=== PATIENT | female | born 1945 | race Caucasian/White ===

== ENCOUNTER 2017-06-24 14:24 | Inpatient (IN) | payer MEDICARE, MEDICAID ==
[~2017-06-24] VITALS: Ht 149.9 cm; Wt 55.8 kg
[~2017-06-24 14:24] MED LIST: AC325T PO; ACYC800T57 PO; AGM875T PO; ASCO-262 PO; ASCO500T20 PO; ASP81TEC PO; CEFU500T5 PO; CEPH500C PO; CRAN200C PO; DCS100C PO; FERR-57 PO; GNT.3OP5 OP; HYDR-34 PO; HYDR-3583 PO; HYDR1TAB66 PO; IBP200T PO; LORA10CA PO; LORA10TA2 PO; LSNP10T PO; MELO7.5T PO; MTF500T PO; NEOM10DR6 LEFT EAR; NFGUAR168P PO; NITR-65 PO; PEG250PW PO; POLY17PO23 GT; SENN1TAB76 PO; SULF-109 PO; TR1C15 TOP; [UNRECOGNIZED DRUG - OTHER] LEFT EAR
[2017-06-24] MEDS ORDERED: NS IV 1000 ML 1,000 ML IV ONE (15:16)
--- NOTE | 2017-06-24 15:22 | ED General ---
General Chief Complaint: Glucose Problems Stated Complaint: CLAMMY RAPID PULSE NOT EATING ELEV BLOOD SUGAR Nursing Triage Note: PT WAS BROUGHT TO ROOM BY WHEELCHAIR. WAS INFORMED THAT PT HAD ELEVATED BLOOD SUGAR SINCE YESTERDAY. HADN'T BEEN EATING OR DRINKING SINCE YESTERDAY WELL. Nursing Sepsis Screen: No Definite Risk Source of Information: Patient Exam Limitations: No Limitations History of Present Illness Time Seen by Provider: 15:05 Initial Comments Here with report by care worker that the patient hasn't been eating or drinking well since yesterday. Noted to have elevated blood sugar yesterday. Refused her night meds and her morning meds and she is not eating today. She has MR and is in a usp. Usually eats well and takes her medicines well. Vomited shortly after arrival here. No report of fever. No reported diarrhea. Timing/Duration: 1-2 Days Severity: Moderate Associated Systoms: No Cough, No Fever/Chills, Nausea/Vomiting, No Shortness of Air, Weakness Allergies and Home Medications Allergies Coded Allergies: ciprofloxacin (Verified Allergy, Intermediate, Lip swelling, 03/06/13) ciprofloxacin HCl (Verified Allergy, Intermediate, Lip swelling, 03/06/13) sulfamethoxazole (Verified Allergy, Intermediate, Lip swelling, 03/06/13) trimethoprim (Verified Allergy, Intermediate, Lip swelling, 03/06/13) Home Medications Acetaminophen 325 Mg Tablet, 650 MG PO EVERY 4-6 HOURS PRN, (Reported) PRN PAIN OR ELEVATED TEMP Ascorbic Acid 500 Mg Tablet, 500 MG PO DAILY, (Reported) Cranberry Extract 200 Mg Capsule, Unknown Dose PO UD, (Reported) Ferrous Sulfate 325 Mg Tablet, 325 MG PO DAILY, (Reported) Lisinopril 10 Mg Tab, 10 MG PO DAILY, (Reported) Loratadine 10 Mg Tablet, 10 MG PO DAILY, (Reported) Metformin Hcl 500 Mg Tab, 500 MG PO BIDPC, (Reported) Nitrofurantoin/Nitrofuran Mac 100 Mg Capsule, 1 EACH PO BID, #20 FOR INFECTION Prescribed by: CECE GUTIERREZ on 08/01/14 7496 Polyethylene Glycol 1 Ea Pack, 17 GM PO DAILY PRN, (Reported) PRN CONSTIPATION Triamcinolone Acet 15 Gm Cr, 0 TOP BID, (Reported) APPLY SPRARINGLY TO FACE AND CHEEK THREE TIMES DAILY Constitutional: see HPI, No chills, No fever Respiratory: no symptoms reported Other unable to complete review of systems due to patient's underlying mental status and advanced MR and nonverbal. Past Zqizgle-Odriee-Vlfpae Hx Patient Social History Alcohol Use: Denies Use Recreational Drug Use: No Smoking Status: Never a Smoker 2nd Hand Smoke Exposure: No Recent Foreign Travel: No Contact w/Someone Who Travel: No Recent Infectious Disease Expo: No Recent Hopitalizations: No Immunizations Up To Date Tetanus Booster (TDap): More than 5yrs Date of Pneumonia Vaccine: Aug 18, 2010 Date of Influenza Vaccine: Aug 28, 2013 Seasonal Allergies Seasonal Allergies: Yes Surgeries HX Surgeries: Yes (LEFT HIP FX ORIF) Surgeries: Hysterectomy, Orthopedic Respiratory Hx Respiratory Disorders: No Cardiovascular Hx Cardiac Disorders: Yes (CHF) Cardiac Disorders: Hypertension Neurological Hx Neurological Disorders: Yes (SEVERE MR, NON-VERBAL) Neurological Disorders: Developmental Disorder Reproductive System Hx Reproductive Disorders: Yes (HYSTERECTOMY) 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 Genitourinary Hx Genitourinary Disorders: Yes Genitourinary Disorders: UTI-Chronic Gastrointestinal Hx Gastrointestinal Disorders: Yes Gastrointestinal Disorders: Chronic Constipation Musculoskeletal Hx Musculoskeletal Disorders: Yes (FX LEFT HIP, CONTRACTURE LEFT HAND) Musculoskeletal Disorders: Arthritis, Fractures, Contracture Endocrine Hx Endocrine Disorders: Yes Endocrine Disorders: Diabetes, Non-Insulin dep HEENT HX ENT Disorders: Yes (ALL TEETH REMOVED) Cancer Hx Cancer: No Psychosocial Hx Psychiatric Problems: Yes (SEVERE MR) Integumentary HX Skin/Integumentary Disorder: No Skin/Integumentary Disorders: Recent Skin Changes Blood Transfusions Hx Blood Disorders: No Adverse Reaction to a Blood Tr: No Reviewed Nursing Assessment Reviewed/Agree w Nursing PMH: Yes Family Medical History Significant Family History: No Pertinent Family Hx Physical Exam Vital Signs Vital Sign - Last 12Hours 06/24/17 15:08 Temp 98.1 Pulse 91 Resp 20 B/P (MAP) 118/46 Pulse Ox 100 O2 Delivery Room Air Capillary Refill : Less Than 3 Seconds General Appearance: No Apparent Distress, WD/WN HEENT: PERRL/EOMI, Pharynx Normal Neck: Non Tender, Supple Respiratory: Lungs Clear, Normal Breath Sounds Cardiovascular: Regular Rate, Rhythm, No Murmur Gastrointestinal: Non Tender, Soft, Other (vomitus noted on her shirt) Back: Normal Inspection, No CVA Tenderness, No Vertebral Tenderness Extremity: Normal Range of Motion, Non Tender Neurologic/Psychiatric: Alert, Disoriented x3 Skin: Normal Color, Warm/Dry Focused Exam Lactic Acid Level Laboratory Tests Test 06/24/17 15:57 Lactic Acid Level 1.36 MMOL/L (0.50-2.00) Progress/Results/Core Measures Results/Orders Lab Results Laboratory Tests Test 06/24/17 15:03 06/24/17 15:45 06/24/17 15:57 Range/Units Glucometer 89 70-110 MG/DL Urine Color YELLOW Urine Clarity SLIGHTLY CLOUDY Urine pH 5 5-9 Urine Specific [place] 1.020 1.016-1.022 Urine Protein NEGATIVE NEGATIVE Urine Glucose (UA) NEGATIVE NEGATIVE Urine Ketones NEGATIVE NEGATIVE Urine Nitrite POSITIVE H NEGATIVE Urine Bilirubin NEGATIVE NEGATIVE Urine Urobilinogen 1 NORMAL MG/DL Urine Leukocyte Esterase 1+ H NEGATIVE Urine RBC (Auto) 1+ H NEGATIVE Urine RBC 0-2 /HPF Urine WBC 5-10 H /HPF Urine Crystals NONE /LPF Urine Bacteria LARGE H /HPF Urine Casts NONE /LPF Urine Mucus NEGATIVE /LPF Urine Culture Indicated YES White Blood Count 6.2 4.3-11.0 10^3/uL Red Blood Count 3.31 L 4.35-5.85 10^6/uL Hemoglobin 10.7 L 11.5-16.0 G/DL Hematocrit 32 L 35-52 % Mean Corpuscular Volume 96 80-99 FL Mean Corpuscular Hemoglobin 32 25-34 PG Mean Corpuscular Hemoglobin Concent 34 32-36 G/DL Red Cell Distribution Width 14.9 H 10.0-14.5 % Platelet Count 103 L 130-400 10^3/uL Mean Platelet Volume 10.4 7.4-10.4 FL Neutrophils (%) (Auto) 57 42-75 % Lymphocytes (%) (Auto) 30 12-44 % Monocytes (%) (Auto) 12 0-12 % Eosinophils (%) (Auto) 1 0-10 % Basophils (%) (Auto) 1 0-10 % Neutrophils # (Auto) 3.6 1.8-7.8 X 10^3 Lymphocytes # (Auto) 1.9 1.0-4.0 X 10^3 Monocytes # (Auto) 0.7 0.0-1.0 X 10^3 Eosinophils # (Auto) 0.1 0.0-0.3 10^3/uL Basophils # (Auto) 0.0 0.0-0.1 10^3/uL Sodium Level 147 H 135-145 MMOL/L Potassium Level 5.5 H 3.6-5.0 MMOL/L Chloride Level 118 H 98-107 MMOL/L Carbon Dioxide Level 19 L 21-32 MMOL/L Anion Gap 10 5-14 MMOL/L Blood Urea Nitrogen 43 H 7-18 MG/DL Creatinine 1.09 0.60-1.30 MG/DL Estimat Glomerular Filtration Rate 49 BUN/Creatinine Ratio 39 Glucose Level 89 70-105 MG/DL Lactic Acid Level 1.36 0.50-2.00 MMOL/L Calcium Level 9.1 8.5-10.1 MG/DL Magnesium Level 1.9 1.8-2.4 MG/DL Total Bilirubin 0.5 0.1-1.0 MG/DL Aspartate Amino Transf (AST/SGOT) 39 H 5-34 U/L Alanine Aminotransferase (ALT/SGPT) 30 0-55 U/L Alkaline Phosphatase 103 40-136 U/L Troponin I < 0.30 <0.30 NG/ML C-Reactive Protein High Sensitivity 0.35 0.00-0.50 MG/DL Total Protein 6.4 6.4-8.2 GM/DL Albumin 3.5 3.2-4.5 GM/DL Amylase Level 98 25-125 U/L Lipase 273 H 8-78 U/L My Orders Orders - FABIOLA NJ MD Saline Lock/Iv-Start (06/24/17 15:16) Ns Iv 1000 Ml (Sodium Chloride 0.9%) (06/24/17 15:16) Ekg Tracing (06/24/17 15:16) Monitor-Rhythm Ecg Trace Only (06/24/17 15:16) Amylase (06/24/17 15:16) Cbc With Automated Diff (06/24/17 15:16) Comprehensive Metabolic Panel (06/24/17 15:16) Hs C Reactive Protein (06/24/17 15:16) Lactic Acid Analyzer (06/24/17 15:16) Lipase (06/24/17 15:16) Magnesium (06/24/17 15:16) Troponin I (06/24/17 15:16) Ua Culture If Indicated (06/24/17 15:16) Blood Culture (06/24/17 15:16) Chest 1 View, Ap/Pa Only (06/24/17 15:26) Urine Culture (06/24/17 15:45) Medications Given in ED Current Medications Medications Dose Ordered Sig/[place] Route Start Time Stop Time Status Last Admin Dose Admin Sodium Chloride 1,000 ml @ 0 mls/hr Q0M ONCE IV 06/24/17 15:16 06/24/17 15:20 DC 06/24/17 15:35 1,000 MLS/HR Vital Signs/I&O Vital Sign - Last 12Hours 06/24/17 15:08 Temp 98.1 Pulse 91 Resp 20 B/P (MAP) 118/46 Pulse Ox 100 O2 Delivery Room Air Blood Pressure Mean: 70 Progress Note : Progress Note Seen and evaluated. IV, labs, EKG, normal saline 1 L bolus. Blood sugar ordered. Monitor patient. 1642: Discussed case with Dr. Shah. Patient has urinary tract infection in the setting of persistent vomiting and not wanting to take by mouth foods or fluids. Also noted dehydration. She will need treatment for her urinary tract infection which will require IV antibiotics. Dr. Shah agrees and accepts patient for admission, inpatient status. Care worker informed and agrees. Rocephin 1 g IV ordered. History shows patient to have previous multiple organisms but both were sensitive to ceftriaxone. ECG Initial ECG Impression Date: Jun 24, 2017 Initial ECG Impression Time: 15:12 Initial ECG Rate: 88 Initial ECG Rhythm: Normal Sinus Comment Sinus rhythm with LVH. No evidence of ST elevation HI. No previous available for comparison. Interpreted by me. Diagnostic Imaging Diagonstic Imaging: Xray Plain Films/CT/US/NM/MRI: chest Comments VIA [place], [place] NAME: CLAUDETTE BRIONES [facility] REC#: [id number] PT STATUS: REG ER : 1945 PHYSICIAN: FABIOLA NJ MD ADMIT DATE: 06/24/17/ER Draft Date of Exam:06/24/17 CHEST 1 VIEW, AP/PA ONLY INDICATION: Elevated blood sugar. EXAMINATION: Portable erect AP chest at 4:20 p.m. FINDINGS: As on the prior exam of 01/01/16, there is shallow inspiration. Allowing for this technical factor, the heart size is within normal limits and stable when compared to the prior exam. There are chronic pulmonary changes evident but there is no sign of failure, pneumonia or of a pleural effusion to suggest an acute abnormality. The mediastinum is not widened. There is irregularity of the right sixth rib. Most likely this is a sequela of prior trauma. There is no acute bony abnormality identified. IMPRESSION: 1. There is chronic pulmonary disease but there is no acute cardiopulmonary abnormality identified on this suboptimal exam. 2. If clinical concern regarding an underlying abnormality persists, then followup PA and lateral chest would be recommended for further study. Dictated on workstation # [id number] Dict: 06/24/17 1631 Trans: 06/24/17 1636 [facility] [id number] Interpreted by: DAVID LINDA MD Electronically signed by: Departure Communication Time/Spoke to Admitting Phy: 16:42 Impression Impression: Primary Impression: Urinary tract infectious disease Additional Impression: Dehydration Disposition: ADMITTED INPATIENT Condition: Stable Admissions Decision to Admit Reason: Admit from ER (General) Decision to Admit/Date: Jun 24, 2017 Time/Decision to Admit Time: 16:42 Departure-Patient Inst. Referrals: BELA AGUIRRE MD (PCP/Family) Primary Care Physician FABIOLA NJ MD Jun 24, 2017 15:22
[2017-06-24 15:51] LABS: BILIRUBIN,URINE NEGATIVE (NEGATIVE); KETONES,URINE NEGATIVE (NEGATIVE); LEUKOCYTE ESTERASE ,URINE 1+ (NEGATIVE); NITRITE,URINE POSITIVE (NEGATIVE); PH,URINE 5 (5-9); PROTEIN,URINE NEGATIVE (NEGATIVE); UROBILINOGEN,URINE 1 MG/DL (NORMAL)
[2017-06-24 16:10] LABS: BASOPHILS % (AUTO) 1 % (0-10); EOSINOPHILS # (AUTO) 0.1 10^3/uL (0.0-0.3); EOSINOPHILS % (AUTO) 1 % (0-10); LYMPHOCYTES # (AUTO) 1.9 X 10^3 (1.0-4.0); LYMPHOCYTES % (AUTO) 30 % (12-44); MEAN CORPUSCULAR HEMOGLOBIN 32 PG (25-34); MEAN CORPUSCULAR HGB CONC 34 G/DL (32-36); MEAN CORPUSCULAR VOLUME 96 FL (80-99); MEAN PLATELET VOLUME 10.4 FL (7.4-10.4); MONOCYTES # (AUTO) 0.7 X 10^3 (0.0-1.0); MONOCYTES % (AUTO) 12 % (0-12); NEUTROPHILS # (AUTO) 3.6 X 10^3 (1.8-7.8); NEUTROPHILS % (AUTO) 57 % (42-75); PLATELET COUNT 103 10^3/uL (130-400); RED BLOOD COUNT 3.31 10^6/uL (4.35-5.85); RED CELL DISTRIBUTION WIDTH 14.9 % (10.0-14.5); WHITE BLOOD COUNT 6.2 10^3/uL (4.3-11.0)
[2017-06-24 16:29] LABS: ALANINE AMINOTRANSFERASE 30 U/L (0-55); ALBUMIN 3.5 GM/DL (3.2-4.5); AMYLASE 98 U/L (25-125); ANION GAP 10 MMOL/L (5-14); ASPARTATE AMINO TRANSFERASE 39 U/L (5-34); BILIRUBIN,TOTAL 0.5 MG/DL (0.1-1.0); BLOOD UREA NITROGEN 43 MG/DL (7-18); BUN/CREATININE RATIO 39; CALCIUM 9.1 MG/DL (8.5-10.1); CARBON DIOXIDE 19 MMOL/L (21-32); CHLORIDE 118 MMOL/L (98-107); CREATININE SERUM 1.09 MG/DL (0.60-1.30); GFR ESTIMATED 49; GLUCOSE 89 MG/DL (70-105); LIPASE 273 U/L (8-78); MAGNESIUM 1.9 MG/DL (1.8-2.4); POTASSIUM 5.5 MMOL/L (3.6-5.0); SODIUM 147 MMOL/L (135-145); TOTAL PROTEIN 6.4 GM/DL (6.4-8.2); hs C REACTIVE PROTEIN 0.35 MG/DL (0.00-0.50)
[2017-06-24 16:34] LABS: TROPONIN I < 0.30 NG/ML (<0.30)
--- NOTE | 2017-06-24 16:36 | Diagnostic Imaging Report ---
INDICATION: Elevated blood sugar. EXAMINATION: Portable erect AP chest at 4:20 p.m. FINDINGS: As on the prior exam of 01/01/16, there is shallow inspiration. Allowing for this technical factor, the heart size is within normal limits and stable when compared to the prior exam. There are chronic pulmonary changes evident but there is no sign of failure, pneumonia or of a pleural effusion to suggest an acute abnormality. The mediastinum is not widened. There is irregularity of the right sixth rib. Most likely this is a sequela of prior trauma. There is no acute bony abnormality identified. IMPRESSION: 1. There is chronic pulmonary disease but there is no acute cardiopulmonary abnormality identified on this suboptimal exam. 2. If clinical concern regarding an underlying abnormality persists, then followup PA and lateral chest would be recommended for further study. Dictated by: Dictated on workstation # [id number]
[2017-06-24 17:30] VITALS: BP 133/64
[2017-06-24] MEDS ORDERED: cefTRIAXone INJECTION 1,000 MG in NS (IVPB) 50 ML IV SCH (18:00)
[2017-06-24] MEDS ORDERED: ONDANSETRON 4 MG/2 ML (SDV) Z0FRAN IVP PRN (18:00)
[2017-06-24] MEDS ORDERED: NS (IVPB) 50 ML ONE (18:18)
[2017-06-24] MEDS ORDERED: cefTRIAXone 1 GM (ROCEPHIN) VIAL ONE (18:18)
[2017-06-24] MEDS: NS IV 1000 ML 1,000 ML IV SCH (18:27)
[2017-06-24] MEDS ORDERED: LOPE-145 PO (19:15)
[2017-06-24] MEDS ORDERED: IBUP200C11 PO (19:15)
[2017-06-24] MEDS ORDERED: DIPH25CA79 PO (19:15)
[2017-06-24] MEDS ORDERED: EUCA1LOZ28 MM (19:15)
[2017-06-24] MEDS ORDERED: MONT10TA24 PO (19:15)
[2017-06-24] MEDS ORDERED: GUAI237L82 PO (19:15)
[2017-06-24] MEDS ORDERED: CALC-870 PO (19:15)
[2017-06-24] MEDS ORDERED: CARB15DR87 OT (19:15)
[2017-06-24] MEDS ORDERED: ALBU2.5V4 NEB (19:15)
[2017-06-24] MEDS ORDERED: GLIM2TAB PO (19:15)
[2017-06-24] MEDS ORDERED: BENZ100C23 PO (19:15)
[2017-06-24] MEDS ORDERED: LORA10TA7 PO (19:15)
[2017-06-24] MEDS ORDERED: NEOM28.33 TP (19:15)
[2017-06-24] MEDS ORDERED: MAGN400O7 PO (19:15)
[2017-06-24] MEDS ORDERED: TETR15DR74 OU (19:15)
[2017-06-24] MEDS ORDERED: DIPH25TA65 PO (19:15)
[2017-06-24] MEDS ORDERED: HYDR28OI2 TP (19:15)
[2017-06-24 20:00] VITALS: BP 155/77
[2017-06-25] VITALS: BP 135/84
[2017-06-25 04:00] VITALS: BP 110/64
[2017-06-25] MEDS: NS IV 1000 ML 1,000 ML IV SCH ×2 (04:50→15:04)
[2017-06-25 06:30] LABS: BASOPHILS % (AUTO) 0 % (0-10); EOSINOPHILS % (AUTO) 1 % (0-10); LYMPHOCYTES % (AUTO) 22 % (12-44); MEAN CORPUSCULAR HEMOGLOBIN 32 PG (25-34); MEAN CORPUSCULAR HGB CONC 33 G/DL (32-36); MEAN CORPUSCULAR VOLUME 96 FL (80-99); MEAN PLATELET VOLUME 10.8 FL (7.4-10.4); MONOCYTES # (AUTO) 0.5 X 10^3 (0.0-1.0); MONOCYTES % (AUTO) 11 % (0-12); NEUTROPHILS % (AUTO) 66 % (42-75); PLATELET COUNT 76 10^3/uL (130-400); RED BLOOD COUNT 3.16 10^6/uL (4.35-5.85); RED CELL DISTRIBUTION WIDTH 14.8 % (10.0-14.5); WHITE BLOOD COUNT 4.6 10^3/uL (4.3-11.0)
[2017-06-25 06:55] LABS: ALANINE AMINOTRANSFERASE 32 U/L (0-55); ALBUMIN 3.2 GM/DL (3.2-4.5); ANION GAP 9 MMOL/L (5-14); ASPARTATE AMINO TRANSFERASE 47 U/L (5-34); BILIRUBIN,TOTAL 0.4 MG/DL (0.1-1.0); BLOOD UREA NITROGEN 38 MG/DL (7-18); BUN/CREATININE RATIO 46; CALCIUM 8.6 MG/DL (8.5-10.1); CARBON DIOXIDE 16 MMOL/L (21-32); CHLORIDE 119 MMOL/L (98-107); CREATININE SERUM 0.83 MG/DL (0.60-1.30); GFR ESTIMATED > 60; GLUCOSE 70 MG/DL (70-105); POTASSIUM 5.2 MMOL/L (3.6-5.0); SODIUM 144 MMOL/L (135-145); TOTAL PROTEIN 6.1 GM/DL (6.4-8.2)
[2017-06-25 08:19] VITALS: BP 115/68
[2017-06-25 11:20] VITALS: BP 120/64
[2017-06-25] MEDS ORDERED: BENZONATATE 100 MG (TESSALON) CAPSULE PO PRN (11:30)
[2017-06-25] MEDS ORDERED: CALCIUM CARBONATE 500 MG (TUMS) TAB.CHEW PO PRN (11:30)
[2017-06-25] MEDS ORDERED: TETRAHYDROZOLINE (VISINE) 0.05% 15 ML BTL OP PRN (11:30)
[2017-06-25] MEDS ORDERED: HYDROCORTISONE ACETATE TP PRN (11:30)
[2017-06-25] MEDS ORDERED: RT-ALBUTEROL SULF 2.5 MG/3 ML PRE-MIX VIAL IH PRN (11:30)
[2017-06-25] MEDS ORDERED: MENTHOL MM PRN (11:30)
[2017-06-25] MEDS ORDERED: IBUPROFEN TABLET 200 MG TAB PO PRN (11:30)
[2017-06-25] MEDS ORDERED: diphenhydrAMINE 25 MG TAB (BENADRYL) PO PRN ×2 (11:30)
[2017-06-25] MEDS ORDERED: MILK OF MAGNESIA 400 MG/5 ML 30 ML UDC PO PRN (11:30)
[2017-06-25] MEDS ORDERED: CARBAM PEROX/GLYC/PROP 15 ML DROPS (DEBROX) OT PRN (11:30)
[2017-06-25] MEDS ORDERED: NEO/POLY/BAC (NEOSPORIN) OINT 15 GM TUBE TP PRN (11:30)
[2017-06-25] MEDS ORDERED: ACETAMINOPHEN 325 MG TABLET/CAPLET (TYLENOL) PO PRN (11:30)
[2017-06-25] MEDS ORDERED: LOPERAMIDE 2 MG (IMODIUM) CAP PO PRN (11:30)
[2017-06-25] MEDS ORDERED: guaiFENesin/DM (ROBITUSSIN DM) 10 ML UDC PO PRN (11:30)
[2017-06-25] MEDS ORDERED: TRIAMCINOLONE 0.1% CR (KENALOG) 15 GM TUBE TOP PRN (11:30)
[2017-06-25] MEDS ORDERED: EUCALYPTUS MM PRN (11:30)
--- NOTE | 2017-06-25 11:56 | History & Physical-Hospitalist ---
HPI History of Present Illness: HPI/Chief Complaint CC: Vomiting and dehydration with UTI HPI: This is a 72yoWF clinic patient of Dr Villegas that has severe MR and lives in a mcc with assist who presents to the ER w/fever and vomiting. Her labs were noted to be c/w dehydration and since she was unable to tolerate PO abx she was admitted for IVF and monitored closely. Pt is non-verbal and has a sitter currently that has no concerns. UCx preliminary reviewed. Home meds are reconciled. Source: RN/MD Exam Limitations: clinical condition (MR with dementia) Date Seen 06/25/17 Time Seen by Provider: 11:00 Attending Physician Nayely Shah Rachel L MD Referring Physician Date of Admission Jun 24, 2017 at 16:50 Home Medications & Allergies Home Medications Reviewed patient Home Medication Reconciliation Form Allergies Allergies Coded Allergies ciprofloxacin (Verified Allergy, Intermediate, Lip swelling, 06/24/17) sulfamethoxazole (Verified Allergy, Intermediate, Lip swelling, 06/24/17) trimethoprim (Verified Allergy, Intermediate, Lip swelling, 06/24/17) metformin (Verified Adverse Reaction, Unknown, 06/24/17) DECREASED KIDNEY FUNCTION PER [place] STAFF Past Jgklrpu-Nsbnlo-Lunvrb Hx Patient Social History Marrital Status: single Employed/Student: unemployed Alcohol Use: Denies Use Recreational Drug Use: No Smoking Status: Never a Smoker 2nd Hand Smoke Exposure: No Physical Abuse Screen: No Sexual Abuse: No Recent Foreign Travel: No Contact w/other who traveled: No Recent Hopitalizations: No Recent Infectious Disease Expo: No Immunizations Up To Date Tetanus Booster (TDap): More than 5yrs Date of Pneumonia Vaccine: Aug 18, 2010 Date of Influenza Vaccine: Aug 28, 2013 Seasonal Allergies Seasonal Allergies: Yes Surgeries HX Surgeries: Yes (LEFT HIP FX ORIF) Surgeries: Hysterectomy, Orthopedic Respiratory Hx Respiratory Disorders: No Cardiovascular Hx Cardiovascular Disorders: Yes (CHF) Cardiac Disorders: Hypertension Neurological Hx Neurological Disorders: Yes (SEVERE MR, NON-VERBAL) Neurological Disorders: Developmental Disorder Reproductive System Hx Reproductive Disorders: Yes (HYSTERECTOMY) 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 Genitourinary Hx Genitourinary Disorders: Yes Genitourinary Disorders: UTI-Chronic Gastrointestinal Hx Gastrointestinal Disorders: Yes Gastrointestinal Disorders: Gastroesophageal Reflux, Chronic Constipation Musculoskeletal Hx Musculoskeletal Disorders: Yes (FX LEFT HIP, CONTRACTURE LEFT HAND) Musculoskeletal Disorders: Arthritis, Fractures, Contracture Endocrine Hx Endocrine Disorders: Yes Endocrine Disorders: Diabetes, Non-Insulin dep HEENT HX ENT Disorders: Yes (ALL TEETH REMOVED) Cancer Hx Cancer: No Psychosocial Hx Psychiatric Problems: Yes (SEVERE MR) Integumentary HX Skin/Integumentary Disorder: No Skin/Integumentary Disorders: Recent Skin Changes Blood Transfusions Hx Blood Disorders: No Adverse Reaction to a Blood Tr: No Reviewed Nursing Assessment Reviewed/Agree w Nursing PMH: Yes Family Medical History Significant Family History: No Pertinent Family Hx Family Hx: Patient reports no known family medical history. Review of Systems ROS-Unable to Obtain: Unable to ascertain due to MR Constitutional: see HPI Physical Exam Physical Exam Vital Signs Vital Sign - Last 12Hours 06/24/17 15:08 Temp 98.1 Pulse 91 Resp 20 B/P (MAP) 118/46 Pulse Ox 100 O2 Delivery Room Air Capillary Refill : Less Than 3 Seconds General Appearance: No Apparent Distress, WD/WN, Chronically ill Eyes: Bilateral Eye Normal Inspection, Bilateral Eye PERRL HEENT: PERRL/EOMI, Normal ENT Inspection, Pharynx Normal Neck: Full Range of Motion, Normal Inspection, Non Tender, Supple, Carotid Bruit Respiratory: Chest Non Tender, Lungs Clear, Normal Breath Sounds, No Accessory Muscle Use, No Respiratory Distress Cardiovascular: Regular Rate, Rhythm, No Edema, No Gallop, No JVD, No Murmur, Normal Peripheral Pulses Gastrointestinal: Normal Bowel Sounds, No Organomegaly, No Pulsatile Mass, Non Tender, Soft Back: Normal Inspection, No CVA Tenderness, No Vertebral Tenderness Extremity: Normal Capillary Refill, Normal Inspection, Normal Range of Motion, Non Tender, No Calf Tenderness, No Pedal Edema Neurologic/Psychiatric: Alert, Other (MR) Skin: Normal Color, Warm/Dry Lymphatic: No Adenopathy Results Results/Procedures Lab Laboratory Tests 06/24/17 15:57 06/25/17 06:05 Assessment/Plan Admission Diagnosis Assessment: Acute UTI w/h/o UTI's in the past Dehydration on labs and exam MR severe Asthma HTN DM MR Dementia Assessment and Plan Plan: DVT Px w/SCD and Lovenox Reconciled most of her home meds but will hold OHA and SSI until she is eating and drinking normally Check labs in am Clinical Quality Measures DVT/VTE Risk/Contraindication: Risk Factor Score Per Nursin RFS Level Per Nursing on Admit: 4+=Very High NAYELY SHAH DO Jun 25, 2017 11:56
[2017-06-25] MEDS: inSUlin ASPART (NovoLOG) 1 UNIT/0.01 ML (CHARGE PER UNIT) SC SCH ×3 (11:57→21:07)
[2017-06-25] MEDS ORDERED: ENOXAPARIN 40 MG/0.4 ML (LOVENOX) SYR SC SCH (12:00)
[2017-06-25] MEDS: lisINopril 10 MG (PRINIVIL) TAB PO SCH (12:11)
[2017-06-25] MEDS: POLYETHYLENE GLYCOL 17 GM (MIRALAX) PACK PO SCH (12:11)
[2017-06-25] MEDS: FERROUS SULF 325 MG (IRON) TAB PO SCH (12:11)
[2017-06-25] MEDS: ASCORBIC ACID (VIT C) 500 MG TABLET PO SCH (12:11)
[2017-06-25 16:00] VITALS: BP 106/42
[2017-06-25] MEDS ORDERED: cefTRIAXone INJECTION 1,000 MG in NS (IVPB) 50 ML IV SCH (18:00)
[2017-06-25 19:13] VITALS: BP 121/71
[2017-06-25] MEDS ORDERED: MONTELUKAST 10 MG (SINGULAIR) TAB PO SCH (21:00)
[2017-06-25] MEDS ORDERED: LORATADINE (CLARITIN) 10 MG TAB PO SCH (21:00)
[2017-06-26 00:09] VITALS: BP 115/59
[2017-06-26] MEDS: NS IV 1000 ML 1,000 ML IV SCH (01:04)
[2017-06-26 04:00] VITALS: BP 154/73
[2017-06-26] MEDS: inSUlin ASPART (NovoLOG) 1 UNIT/0.01 ML (CHARGE PER UNIT) SC SCH (06:02)
[2017-06-26 06:57] LABS: BASOPHILS % (AUTO) 0 % (0-10); EOSINOPHILS % (AUTO) 1 % (0-10); LYMPHOCYTES # (AUTO) 0.9 X 10^3 (1.0-4.0); LYMPHOCYTES % (AUTO) 17 % (12-44); MEAN CORPUSCULAR HEMOGLOBIN 32 PG (25-34); MEAN CORPUSCULAR HGB CONC 34 G/DL (32-36); MEAN CORPUSCULAR VOLUME 96 FL (80-99); MEAN PLATELET VOLUME 11.1 FL (7.4-10.4); MONOCYTES # (AUTO) 0.6 X 10^3 (0.0-1.0); MONOCYTES % (AUTO) 11 % (0-12); NEUTROPHILS # (AUTO) 3.8 X 10^3 (1.8-7.8); NEUTROPHILS % (AUTO) 72 % (42-75); PLATELET COUNT 82 10^3/uL (130-400); RED BLOOD COUNT 3.01 10^6/uL (4.35-5.85); RED CELL DISTRIBUTION WIDTH 14.6 % (10.0-14.5); WHITE BLOOD COUNT 5.3 10^3/uL (4.3-11.0)
[2017-06-26 07:15] LABS: ALANINE AMINOTRANSFERASE 30 U/L (0-55); ALBUMIN 3.2 GM/DL (3.2-4.5); ANION GAP 9 MMOL/L (5-14); ASPARTATE AMINO TRANSFERASE 43 U/L (5-34); BILIRUBIN,TOTAL 0.6 MG/DL (0.1-1.0); BLOOD UREA NITROGEN 34 MG/DL (7-18); BUN/CREATININE RATIO 42; CALCIUM 8.6 MG/DL (8.5-10.1); CARBON DIOXIDE 16 MMOL/L (21-32); CHLORIDE 119 MMOL/L (98-107); CREATININE SERUM 0.81 MG/DL (0.60-1.30); GFR ESTIMATED > 60; GLUCOSE 99 MG/DL (70-105); POTASSIUM 4.3 MMOL/L (3.6-5.0); SODIUM 144 MMOL/L (135-145)
[2017-06-26 08:00] VITALS: BP 130/67
[2017-06-26] MEDS: lisINopril 10 MG (PRINIVIL) TAB PO SCH (08:36)
[2017-06-26] MEDS: FERROUS SULF 325 MG (IRON) TAB PO SCH (08:36)
[2017-06-26] MEDS: POLYETHYLENE GLYCOL 17 GM (MIRALAX) PACK PO SCH (08:36)
[2017-06-26] MEDS: ASCORBIC ACID (VIT C) 500 MG TABLET PO SCH (08:36)
[2017-06-26] MEDS ORDERED: CEFD300C3 PO (09:39)
--- NOTE | 2017-06-26 09:40 | Discharge Summary-Hospitalist ---
Diagnosis/Chief Complaint Date of Admission Jun 24, 2017 at 16:50 Date of Discharge Discharge Date: Jun 26, 2017 Admission Diagnosis Assessment: Acute UTI w/h/o UTI's in the past Dehydration on labs and exam MR severe Asthma HTN DM MR Dementia Discharge Diagnosis Assessment: Acute UTI w/h/o UTI's in the past Dehydration on labs and exam MR severe Asthma HTN DM MR Dementia Discharge Summary Discharge Physical Examination Allergies: Coded Allergies: ciprofloxacin (Verified Allergy, Intermediate, Lip swelling, 06/24/17) sulfamethoxazole (Verified Allergy, Intermediate, Lip swelling, 06/24/17) trimethoprim (Verified Allergy, Intermediate, Lip swelling, 06/24/17) metformin (Verified Adverse Reaction, Unknown, 06/24/17) DECREASED KIDNEY FUNCTION PER [place] STAFF Vitals & I&Os Vital Signs Date Time Temp Pulse Resp B/P (MAP) Pulse Ox O2 Delivery O2 Flow Rate FiO2 06/26/17 09:00 Room Air 06/26/17 08:00 98.5 58 16 130/67 98 Hospital Course Hospital course: patient had a brief hospital course. She was admitted for UTI with vomiting and such severe MR she required IVF to maintain status. Rocephin was initiated and UCx resulted in good coverage. She was eating and drinking well and overall was stable for DC and close f/u with Dr Garcia. Labs (last 24 hrs) Laboratory Tests 06/25/17 11:55: Glucometer 164H 06/25/17 15:40: Glucometer 288H 06/25/17 21:03: Glucometer 66L 06/26/17 05:38: Glucometer 93 06/26/17 06:41: White Blood Count 5.3, Red Blood Count 3.01L, Hemoglobin 9.7L, Hematocrit 29L, Mean Corpuscular Volume 96, Mean Corpuscular Hemoglobin 32, Mean Corpuscular Hemoglobin Concent 34, Red Cell Distribution Width 14.6H, Platelet Count 82L, Mean Platelet Volume 11.1H, Neutrophils (%) (Auto) 72, Lymphocytes (%) (Auto) 17 , Monocytes (%) (Auto) 11, Eosinophils (%) (Auto) 1, Basophils (%) (Auto) 0, Neutrophils # (Auto) 3.8, Lymphocytes # (Auto) 0.9L, Monocytes # (Auto) 0.6, Eosinophils # (Auto) 0.0, Basophils # (Auto) 0.0, Sodium Level 144, Potassium Level 4.3, Chloride Level 119H, Carbon Dioxide Level 16L, Anion Gap 9, Blood Urea Nitrogen 34H, Creatinine 0.81, Estimat Glomerular Filtration Rate > 60, BUN /Creatinine Ratio 42, Glucose Level 99, Calcium Level 8.6, Total Bilirubin 0.6, Aspartate Amino Transf (AST/SGOT) 43H, Alanine Aminotransferase (ALT/SGPT) 30, Alkaline Phosphatase 102, Total Protein 6.0L, Albumin 3.2 Microbiology 06/24/17 Blood Culture - Preliminary, Resulted No growth 06/24/17 Urine Culture - Final, Complete Escherichia Coli Enterococcus Faecalis Pending Labs Laboratory Tests 06/26/17 05:38: Glucometer 93 06/26/17 06:41: White Blood Count 5.3, Red Blood Count 3.01, Hemoglobin 9.7, Hematocrit 29, Mean Corpuscular Volume 96, Mean Corpuscular Hemoglobin 32, Mean Corpuscular Hemoglobin Concent 34, Red Cell Distribution Width 14.6, Platelet Count 82, Mean Platelet Volume 11.1, Neutrophils (%) (Auto) 72, Lymphocytes (%) (Auto) 17 , Monocytes (%) (Auto) 11, Eosinophils (%) (Auto) 1, Basophils (%) (Auto) 0, Neutrophils # (Auto) 3.8, Lymphocytes # (Auto) 0.9, Monocytes # (Auto) 0.6, Eosinophils # (Auto) 0.0, Basophils # (Auto) 0.0, Sodium Level 144, Potassium Level 4.3, Chloride Level 119, Carbon Dioxide Level 16, Anion Gap 9, Blood Urea Nitrogen 34, Creatinine 0.81, Estimat Glomerular Filtration Rate > 60, BUN/ Creatinine Ratio 42, Glucose Level 99, Calcium Level 8.6, Total Bilirubin 0.6, Aspartate Amino Transf (AST/SGOT) 43, Alanine Aminotransferase (ALT/SGPT) 30, Alkaline Phosphatase 102, Total Protein 6.0, Albumin 3.2 Discharge Home Medications: Active Scripts Active Cefdinir 300 Mg Capsule 300 Mg PO BID Reported Imodium A-D (Loperamide HCl) 2 Mg Capsule PO UD PRN TAKE 2 TABS AFTER 1ST WATERY STOOL AND 1 TAB AFTER EACH WATERY STOOL THEREAFTER (NTE 4 DOSES IN 24 HOURS) Robitussin Cough-Chest Dm Liq (Guaifenesin/Dextromethorphan) 237 Ml Liquid 10 Ml PO Q4H PRN NOT TO EXCEED 6 DOSES IN 24 HOURS Milk of Magnesia (Magnesium Hydroxide) 400 Mg/5 Ml Oral.susp 30 Ml PO BID PRN Advil (Ibuprofen) 200 Mg Capsule 400 Mg PO Q6H PRN TAKES 2 (200MG) CAPSULES Benadryl Allergy (Diphenhydramine HCl) 25 Mg Tablet 50 Mg PO Q6H PRN TAKES 2 (25MG) TABLETS Benadryl (Diphenhydramine HCl) 25 Mg Capsule 25 Mg PO Q6H PRN Cough Drops (Eucalyptus/Menthol) 1 Each Lozenge 1 Masha MM Q1HR PRN MAX 8 DROPS IN 24 HOURS Tums X-Str (Calcium Carbonate) 300 Mg Tab.chew 500 Mg PO UD PRN NOT TO EXCEED 10 TABS IN 24 HOURS Benzonatate 100 Mg Capsule 100 Mg PO Q8H PRN Neosporin Ointment (Neomycin Flood/Bacitrac Zn/Poly) 28.3 Gm Oint...g. TP BID PRN Visine (Tetrahydrozoline HCl) 15 Ml Drops 2 Drops OU QID PRN Hydrocortisone (Hydrocortisone Acetate) 28 Gm Oint...g. TP TID PRN APPLY TO ACUTE SKIN RASH - DO NOT APPLY TO OPEN SKIN Debrox (Carbamide Peroxide) 15 Ml Drops 10 Drops OT UD PRN 10 DROPS TO BOTH EARS 10 DAYS PRIOR TO NEXT VISIT Albuterol Sulfate 2.5 Mg/3 Ml Vial.neb 2.5 Mg NEB EVERY 4-6 HOURS PRN Montelukast Sodium 10 Mg Tablet 10 Mg PO HS Loratadine 10 Mg Tablet 10 Mg PO HS Glimepiride 2 Mg Tablet 2 Mg PO DAILY Vitamin C 500 Mg (Ascorbic Acid) 500 Mg Tablet 500 Mg PO DAILY Miralax Pkt (Polyethylene Glycol) 1 Ea Pack 17 Gm PO DAILY Triamcinolone 0.1% Cream (Triamcinolone Acetonide) 15 Gm Cr TOP TID PRN APPLY TO NECK Tylenol (Acetaminophen) 325 Mg Tablet 650 Mg PO EVERY 4-6 HOURS PRN TAKES 2 (325MG) TABLETS Ferrous Sulfate 325 Mg Tablet 325 Mg PO DAILY Zestril (Lisinopril) 10 Mg Tab 10 Mg PO DAILY Instructions to patient/family Please see electonic discharge instructions given to patient. Clinical Quality Measures DVT/VTE Risk/Contraindication: Risk Factor Score Per Nursin RFS Level Per Nursing on Admit: 4+=Very High LADY RANDOLPH DO Jun 26, 2017 09:40
[2017-06-26 12:08] VITALS: BP 130/67
== END 2017-06-26 12:08 | disposition home or self-care (01) | DRG 690 ==
LOC: EDUNIT# 14:24 → ER 14:26 → 4TH 16:50
PROVIDERS: ADMIT Internal Medicine; ATTEND Internal Medicine
DX: N39.0 Urinary tract infection, site not specified (principal); E86.0 Dehydration; F72 Severe intellectual disabilities; J45.909 Unspecified asthma, uncomplicated; I10 Essential (primary) hypertension; E11.9 Type 2 diabetes mellitus without complications; Z79.84 Long term (current) use of oral hypoglycemic drugs; F03.90 Unspecified dementia, unspecified severity, without behavioral disturbance, psychotic disturbance, mood disturbance, and anxiety
CPT/HCPCS: 36415; 71010; 80053; 81000; 82150; 82962; 83605; 83690; 83735; 84484; 85025; 86141; 87040; 87077; 87088; 87186; 93005; 93041

== ENCOUNTER → 2017-07-14 | Outpatient (CLI) | payer MEDICARE, MEDICAID ==
[~2017-07-14] MED LIST changes: +ALBU2.5V4 NEB; +BENZ100C23 PO; +CALC-870 PO; +CARB15DR87 OT; +CEFD300C3 PO; +DIPH25CA79 PO; +DIPH25TA65 PO; +EUCA1LOZ28 MM; +GLIM2TAB PO; +GUAI237L82 PO; +HYDR28OI2 TP; +IBUP200C11 PO; +LOPE-145 PO; +LORA10TA7 PO; +MAGN400O7 PO; +MONT10TA24 PO; +NEOM28.33 TP; +TETR15DR74 OU
== END ==
LOC: CARD 09:04
PROVIDERS: ATTEND Family Medicine
DX: R60.0 Localized edema (principal); I50.9 Heart failure, unspecified
CPT/HCPCS: 93306

== ENCOUNTER 2017-08-22 09:00 | Outpatient (CLI) | payer MEDICARE, MEDICAID ==
[~2017-08-22] VITALS: Ht 149.9 cm; Wt 54.9 kg
[2017-08-22] MEDS ORDERED: TR1C15 TP (13:30)
[2017-08-22] MEDS ORDERED: POLY17PO23 PO (13:30)
[2017-08-22] MEDS ORDERED: LORA0.5T PO (13:30)
[2017-08-22] MEDS ORDERED: CNC1KV IJ (13:30)
[2017-08-22] MEDS ORDERED: FERR-74 PO (13:30)
[2017-08-22] MEDS ORDERED: LISI10TA2 PO (13:30)
[2017-08-22] MEDS ORDERED: ASCO500T7 PO (13:30)
[2017-08-22] MEDS ORDERED: ACET325T49 PO (13:30)
[2017-08-23] MEDS ORDERED: PANT40TA2 PO (13:24)
== END 2017-08-22 13:32 ==
LOC: PREOP 09:00
PROVIDERS: ATTEND Surgery
DX: Z01.818 Encounter for other preprocedural examination (principal); D64.9 Anemia, unspecified

== ENCOUNTER 2017-08-23 10:52 | Day surgery (SDC) | payer MEDICARE, MEDICAID ==
[~2017-08-23] VITALS: Ht 149.9 cm; Wt 54.9 kg
[~2017-08-23 10:52] MED LIST changes: +ACET325T49 PO; +ASCO500T7 PO; +CNC1KV IJ; +FERR-74 PO; +LISI10TA2 PO; +LORA0.5T PO; +POLY17PO23 PO; +TR1C15 TP
--- NOTE | 2017-08-23 10:57 | Conscious Sedation/ASA ---
Conscious Sedation Pre-Proced Time Reviewed: 10:50 ASA Class: 2 Airway Mallampati Classification: ([place] appropriate class) I. II. III, IV Lungs Heart ASA score ASA 1: a normal healthy patient ASA 2: a patient with a mild systemic disease (mid diabetes, controlled hypertension, obesity ASA 3: a patient with a severe systemic disease that limits activity (angina , COPD, prior Myocardial infarction) ASA 4: a patient with an incapacitating disease that is a constant threat to life (CHF, renal failure) ASA 5: a moribund patient not expected to survive 24 hrs. (ruptured aneurysm) ASA 6: a declared brain patient whose organs are being harvested. For emergent operations, add the letter E after the classification Grade 2 Sedation Plan: Analgesia, Amnesia, Plan communicated to team members, Discussed options with patient/fam, Discussed risks with patient/fam Note The patient is an appropriate candidate to undergo the planned procedure, sedation, and anesthesia. The patient immediately re-assessed prior to indication. KLEBER GIVENS MD Aug 23, 2017 10:57 am
--- NOTE | 2017-08-23 10:58 | Progress Note-Pre Operative ---
Pre-Operative Progress Note H&P Reviewed The H&P was reviewed, patient examined and no changes noted. Date Seen by Provider: Aug 23, 2017 Time Seen by Provider: 10:50 Date H&P Reviewed: Aug 23, 2017 Time H&P Reviewed: 10:50 Pre-Operative Diagnosis: anemia KLEBER GIVENS MD Aug 23, 2017 10:58 am
[2017-08-23] MEDS ORDERED: ONDANSETRON 4 MG/2 ML (SDV) Z0FRAN IV PRN (11:00)
[2017-08-23] MEDS ORDERED: ACETAMINOPHEN 325 MG TABLET/CAPLET (TYLENOL) PO PRN (11:00)
[2017-08-23] MEDS ORDERED: HYDROcodone/APAP 5 MG/325 MG (LORTAB) TAB PO PRN (11:00)
[2017-08-23] MEDS ORDERED: morphine INJ 10 MG/ML 1ML (SYR OR VIAL) IV PRN (11:00)
[2017-08-23] MEDS ORDERED: HURRICAINE EXT TUBE (BENZOCAINE) XX PRN (11:15)
[2017-08-23] MEDS ORDERED: NS IV 500 ML 500 ML IV PRN (11:15)
[2017-08-23] MEDS ORDERED: LIDOCAINE JELLY 2% (XYLOCAINE) 5 ML TUBE MM PRN (11:15)
[2017-08-23 11:27] VITALS: BP 75/49
[2017-08-23] MEDS: fentaNYL INJECTION 100 MCG/2 ML AMP IVP PRN ×4 (12:00→12:20)
[2017-08-23] MEDS: MIDAZOLAM 2 MG/2 ML (VERSED) VIAL IVP PRN ×2 (12:01→12:50)
[2017-08-23 13:15] VITALS: BP 90/51
--- NOTE | 2017-08-23 13:23 | Progress Note-Post Operative ---
Post-Operative Progess Note Surgeon (s)/Patient Case Coordinator (s) Surgeon KLEBER GIVENS MD Patient Case Coordinator: none Pre-Operative Diagnosis anemia Post-Operative Diagnosis reflux esophagtis(class B), mild grade 1 esophageal varices, small HH(1.5cm), small prepyloric ulcers x2(2mm) with overlying fibrin clot. HP polyp rectum(2mm). Procedure & Operative Findings Date of Procedure 08/23/17 Procedure Performed/Findings EGD with bx. Colonoscopy with bx. Anesthesia Type CS Estimated Blood Loss Estimated blood loss (mL): minimal Specimens/Packing Specimens Removed antrum, ulcer KLEBER GIVENS MD Aug 23, 2017 1:22 pm
[2017-08-23] MEDS ORDERED: PANT40TA2 PO (13:24)
--- NOTE | 2017-08-23 13:25 | Discharge Inst-Surgical ---
D/C Lap Instructions-KIDO New, Converted, or Re-Newed RX: RX on Chart Follow PRN Activity as tolerated High Fiber Diet 25g or more per day Avoid Alcohol, Caffeine, Spicy [place] and Acid foods. Drink 64 fluid oz or more of fluids per day. Symptoms to Report: Fever over 101 degree F, Nausea/Vomiting If any problems/questions: Contact your physician or go to Emergency Room KLEBER GIVENS MD Aug 23, 2017 1:25 pm
[2017-08-23 13:45] VITALS: BP 102/54
[2017-08-23 13:49] VITALS: BP 102/54
--- NOTE | 2017-08-25 02:14 | OPERATIVE REPORT ---
DATE OF SERVICE: 08/23/2017 ATTENDING PHYSICIAN: Dr. Garcia. PREOPERATIVE DIAGNOSIS: Anemia. POSTOPERATIVE DIAGNOSES: Reflux esophagitis class B, mild grade I esophageal varices, a small hiatal hernia approximately 1.5 cm in size, 2 small prepyloric ulcers with overlying fibrin clot approximately 2 mm in size. Small hyperplastic polyp of the rectum. The remainder of the colon was normal. PROCEDURE: EGD with biopsy, colonoscopy. SURGEON: Dr. Givens. ANESTHESIA: Conscious sedation. ESTIMATED BLOOD LOSS: Minimal. FINDINGS: EGD reflux esophagitis class B with grade I mild esophageal varices, small hiatal hernia approximately 1.5 cm in size, 2 small prepyloric ulcers with overlying fibrin clot and no active bleeding. Duodenum appeared normal. Colonoscopy, no significant hemorrhoids, small hyperplastic polyp of the rectum, 2 mm in size. The remainder of the rectum and colon were normal. DISPOSITION: The patient tolerated the procedure well. INDICATIONS FOR PROCEDURE: The patient is a 72-year-old female, resident of [facility] with significant developmental delay and is nonverbal. Staff noticed 1 month ago that she had an episode of dark red blood in her stools. She was seen by her primary care physician where she was found to be anemic with a hemoglobin of 9.2. They did not report any major issues with reflux or regurgitation as well as no hematemesis, no coffee-ground emesis. DESCRIPTION OF PROCEDURE: The patient was brought to the endoscopy suite, laid in the left lateral decubitus position. After adequate IV pain and sedating medications and conscious sedation anesthesia, a mouthpiece was applied. The endoscope was placed in the mouth, visualizing the pharynx and hypopharyngeal region. Vocal cords, epiglottis and vallecula identified and appeared to be normal. The endoscope was then gently intubated at the esophageal opening and esophagus insufflated. The endoscope was then advanced to the first, second and third portions of the esophagus. At the level of the GE junction, a reflux esophagitis class B identified. There was also an incidental finding of mild grade I esophageal varices with no active bleeding. The endoscope was then easily advanced in the stomach. The endoscope retroflexed, visualizing a small hiatal hernia approximately 1.5 cm in size. There was a moderate-severity gastritis in the prepyloric region. At the antrum, there were 2 ulcers identified, which appeared to be arising from small benign polyps. There was overlying fibrin clot with no active bleeding. One of these was biopsied with forceps with visualization of good hemostasis. The endoscope was then advanced to the pylorus and the first and second portions of the duodenum, which appeared normal with no distal obstructions. The endoscope was then slowly withdrawn while taking a second look and suctioning of residual air with no additional findings. The patient tolerated this portion of the procedure well. For her reflux esophagitis, gastritis, hiatal hernia and small ulcers that we will start her on Protonix 40 mg daily. This appears to be the most likely cause of her anemia. Under the same conscious sedation anesthesia, we then proceeded with the colonoscopy portion of the procedure. A digital rectal examination was performed, which did not reveal any significant hemorrhoids. Normal sphincter tone was felt and there were no palpable masses. The endoscope was then intubated to the anus and rectum and gently insufflated. The endoscope was then advanced to the valves of [place] of the rectum. A small hyperplastic polyp 2 mm in size was identified. This was biopsied and destroyed using forceps and electrocautery with visualization of good hemostasis. The endoscope was then advanced to the remainder of the rectum, which was normal. We then proceeded through the sigmoid, descending, transverse and ascending colon to the cecum. These segments were normal. There were no other lesions identified. There was no bleeding source identified as well. The endoscope was then slowly withdrawn while taking a second look and suctioning of residual air with no additional findings. The patient tolerated this portion of the procedure well. We will recommend a high-fiber diet with at least 25 grams of fiber per day to promote soft stools on a daily basis. She does not need another colonoscopy for another 10 years; however, sooner if any problems arise. Job ID: [id number] DocumentID: [id number] Dictated Date: 08/23/2017 13:11:25 [employer] Date: 08/24/2017 01:54:38 Dictated By: KLEBER GIVENS MD
== END 2017-08-23 13:50 | disposition home or self-care (01) ==
LOC: ENDO 10:52
PROVIDERS: ATTEND Surgery
DX: D64.9 Anemia, unspecified (principal); K62.1 Rectal polyp; K21.0 Gastro-esophageal reflux disease with esophagitis; I85.00 Esophageal varices without bleeding; K44.9 Diaphragmatic hernia without obstruction or gangrene; K25.9 Gastric ulcer, unspecified as acute or chronic, without hemorrhage or perforation; R62.50 Unspecified lack of expected normal physiological development in childhood; E11.9 Type 2 diabetes mellitus without complications; I11.0 Hypertensive heart disease with heart failure; I50.9 Heart failure, unspecified; K59.00 Constipation, unspecified; D69.6 Thrombocytopenia, unspecified; Z79.899 Other long term (current) drug therapy

== ENCOUNTER 2017-09-28 11:36 | Outpatient (RCR) | payer MEDICARE, MEDICAID ==
[2017-09-13 16:21] LABS: ABSOLUTE RETIC # 36 10e9/L (24-90); BASOPHILS % (AUTO) 0 % (0-10); EOSINOPHILS # (AUTO) 0.1 10^3/uL (0.0-0.3); EOSINOPHILS % (AUTO) 2 % (0-10); HEMATOCRIT 32 % (35-52); HEMOGLOBIN 11.2 G/DL (11.5-16.0); LYMPHOCYTES # (AUTO) 1.6 X 10^3 (1.0-4.0); LYMPHOCYTES % (AUTO) 32 % (12-44); MEAN CORPUSCULAR HEMOGLOBIN 32 PG (25-34); MEAN CORPUSCULAR HGB CONC 35 G/DL (32-36); MEAN CORPUSCULAR VOLUME 93 FL (80-99); MEAN PLATELET VOLUME 11.5 FL (7.4-10.4); MONOCYTES # (AUTO) 0.5 X 10^3 (0.0-1.0); MONOCYTES % (AUTO) 9 % (0-12); NEUTROPHILS # (AUTO) 2.9 X 10^3 (1.8-7.8); NEUTROPHILS % (AUTO) 57 % (42-75); PLATELET COUNT 127 10^3/uL (130-400); RED BLOOD COUNT 3.48 10^6/uL (4.35-5.85); RED CELL DISTRIBUTION WIDTH 14.9 % (10.0-14.5); RETICULOCYTE % 1.02 % (0.50-2.40)
[2017-09-13 16:44] LABS: BAND NEUTROPHILS 0 %; BASOPHILS % (MANUAL) 2 %; EOSINOPHILS % (MANUAL) 5 %; LYMPHOCYTES % (MANUAL) 33 %; MONOCYTES % (MANUAL) 6 %; NEUTROPHILS % (MANUAL) 54 %
[2017-09-13 16:45] LABS: RBC MORPH NORMAL
[~2017-09-28 11:36] MED LIST changes: +BENZ-36 PO; -BENZ100C23 PO; -FERR-74 PO; +FERR325T18 PO; +PANT40TA2 PO
[2017-11-09] MEDS ORDERED: [UNRECOGNIZED DRUG - CODE] TP (13:05)
[2017-11-09] MEDS ORDERED: BENZ-36 PO (13:05)
[2017-11-09] MEDS ORDERED: PANT40TA2 PO (13:05)
[2017-11-11] MEDS ORDERED: ACET650S15 PR (12:42)
[2017-11-11] MEDS ORDERED: LORA2ORA PO (12:42)
[2017-11-11] MEDS ORDERED: MORP100S3 PO (12:42)
== END 2017-12-12 | disposition home or self-care (01) ==
LOC: ONC 11:36
PROVIDERS: ATTEND Internal Medicine Hematology & Oncology
DX: D61.818 Other pancytopenia (principal); F72 Severe intellectual disabilities; E11.9 Type 2 diabetes mellitus without complications; I50.9 Heart failure, unspecified; Z79.899 Other long term (current) drug therapy
CPT/HCPCS: 82525; 82607; 82746; 83090; 83615; 83921; 85007; 85027; 85045; 85055; 86022; 99213

== ENCOUNTER → 2017-10-03 | Outpatient (CLI) | payer MEDICARE, MEDICAID ==
[~2017-10-03] MED LIST changes: +FERR-74 PO; -FERR325T18 PO
--- NOTE | 2017-10-04 19:26 | Diagnostic Imaging Report ---
EXAMINATION: Bilateral screening mammogram 2D views with tomosynthesis The current study was also evaluated with a Computer Aided Detection (CAD) system. INDICATION: Screening. No current complaints stated on the questionnaire. COMPARISON: 07/31/15. FINDINGS: The breasts are composed of heterogeneously dense parenchyma which may decrease mammographic sensitivity. Benign-appearing calcifications are seen. Allowing for technique and positional differences, no suspicious change is seen. IMPRESSION: No significant change. ACR BI-RADS Category 2: Benign findings. Result letter will be mailed to the patient. Note: At least 10% of breast cancer is not imaged by mammography. Dictated on workstation # [id number]
== END ==
LOC: RAD 10:12
PROVIDERS: ATTEND Family Medicine
DX: Z12.31 Encounter for screening mammogram for malignant neoplasm of breast (principal)
CPT/HCPCS: 77067

== ENCOUNTER 2017-11-08 19:56 | Inpatient (IN) | payer MEDICARE, MEDICAID ==
[2017-11-08] VITALS (10 sets, daily range): BP systolic 83–116; BP diastolic 30–70
[~2017-11-08] VITALS: Ht 149.9 cm; Wt 64.5 kg
[~2017-11-08 19:56] MED LIST changes: +ETOMIDATE IV SOLN 20 MG/10 ML VIAL IV ONE; +MIDAZOLAM 5 MG/5 ML (VERSED) VIAL IJ ONE; +NALOXONE 0.4 MG/ML 1 ML (NARCAN) VIAL IV ONE; +SUCCINYLCHOLINE INJ 100 MG/5 ML SYR INJ ONE; +fentaNYL INJECTION 100 MCG/2 ML AMP INJ ONE
[2017-11-08] MEDS ORDERED: LORazepam INJ 2 MG/ML (ATIVAN) VIAL IVP ONE ×2 (20:00→20:15)
--- OUTSIDE RECORDS SUMMARY | 2017-11-08 20:03 | XMS REPORT | Continuity of Care Document ---
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 mg/dL 8.5-10.1 Serum or plasma total bilirubin measurement (mass/volume) 0.4 mg/dL 0.1-1.0 Serum or plasma alkaline phosphatase measurement (enzymatic activity/volume) 91 U/L 40-136 Serum or plasma aspartate aminotransferase measurement (enzymatic activity/ volume) 47 U/L 5-34 Serum or plasma alanine aminotransferase measurement (enzymatic activity/volume ) 32 U/L 0-55 Serum or plasma protein measurement (mass/volume) 6.1 g/dL 6.4-8.2 Serum or plasma albumin measurement (mass/volume) 3.2 g/dL 3.2-4.5 Capillary blood glucose measurement by glucometer (mass/volume) - 06/25/17 11: 55 Capillary blood glucose measurement by glucometer (mass/volume) 164 mg/dL 70-110 Capillary blood glucose measurement by glucometer (mass/volume) - 06/25/17 15: 40 Capillary blood glucose measurement by glucometer (mass/volume) 288 mg/dL 70-110 Capillary blood glucose measurement by glucometer (mass/volume) - 06/25/17 21: 03 Capillary blood glucose measurement by glucometer (mass/volume) 66 mg/dL 70-110 Capillary blood glucose measurement by glucometer (mass/volume) - 06/26/17 05: 38 Capillary blood glucose measurement by glucometer (mass/volume) 93 mg/dL 70-110 Complete blood count (CBC) with automated white blood cell (WBC) differential - 06/26/17 06:41 Blood leukocytes automated count (number/volume) 5.3 10*3/uL 4.3-11.0 Blood erythrocytes automated count (number/volume) 3.01 10*6/uL 4.35-5.85 Venous blood hemoglobin measurement (mass/volume) 9.7 g/dL 11.5-16.0 Blood hematocrit (volume fraction) 29 % 35-52 Automated erythrocyte mean corpuscular volume 96 [foz_us] 80-99 Automated erythrocyte mean corpuscular hemoglobin (mass per erythrocyte) 32 pg 25-34 Automated erythrocyte mean corpuscular hemoglobin concentration measurement ( mass/volume) 34 g/dL 32-36 Automated erythrocyte distribution width ratio 14.6 % 10.0-14.5 Automated blood platelet count (count/volume) 82 10*3/uL 130-400 Automated blood platelet mean volume measurement 11.1 [foz_us] 7.4-10.4 Automated blood neutrophils/100 leukocytes 72 % 42-75 Automated blood lymphocytes/100 leukocytes 17 % 12-44 Blood monocytes/100 leukocytes 11 % 0-12 Automated blood eosinophils/100 leukocytes 1 % 0-10 Automated blood basophils/100 leukocytes 0 % 0-10 Blood neutrophils automated count (number/volume) 3.8 10*3 1.8-7.8 Blood lymphocytes automated count (number/volume) 0.9 10*3 1.0-4.0 Blood monocytes automated count (number/volume) 0.6 10*3 0.0-1.0 Automated eosinophil count 0.0 10*3/uL 0.0-0.3 Automated blood basophil count (count/volume) 0.0 10*3/uL 0.0-0.1 Comprehensive metabolic panel - 06/26/17 06:41 Serum or plasma sodium measurement (moles/volume) 144 mmol/L 135-145 Serum or plasma potassium measurement (moles/volume) 4.3 mmol/L 3.6-5.0 Serum or plasma chloride measurement (moles/volume) 119 mmol/L 98-107 Carbon dioxide 16 mmol/L 21-32 Serum or plasma anion gap determination (moles/volume) 9 mmol/L 5-14 Serum or plasma urea nitrogen measurement (mass/volume) 34 mg/dL 7-18 Serum or plasma creatinine measurement (mass/volume) 0.81 mg/dL 0.60-1.30 Serum or plasma urea nitrogen/creatinine mass ratio 42 NRG Serum or plasma creatinine measurement with calculation of estimated glomerular filtration rate > NRG Serum or plasma glucose measurement (mass/volume) 99 mg/dL 70-105 Serum or plasma calcium measurement (mass/volume) 8.6 mg/dL 8.5-10.1 Serum or plasma total bilirubin measurement (mass/volume) 0.6 mg/dL 0.1-1.0 Serum or plasma alkaline phosphatase measurement (enzymatic activity/volume) 102 U/L 40-136 Serum or plasma aspartate aminotransferase measurement (enzymatic activity/ volume) 43 U/L 5-34 Serum or plasma alanine aminotransferase measurement (enzymatic activity/volume ) 30 U/L 0-55 Serum or plasma protein measurement (mass/volume) 6.0 g/dL 6.4-8.2 Serum or plasma albumin measurement (mass/volume) 3.2 g/dL 3.2-4.5 Encounters ACCT No. Visit Date/Time Discharge Status Pt. Type Provider Facility Loc./Unit Complaint [id number] 10/03/2017 10:12:00 10/03/2017 23:59:59 CLS Outpatient BELA AGUIRRE MD [facility] RAD SCREENING [id number] 09/28/2017 11:36:00 09/28/2017 23:59:59 CLS Outpatient RENETTA WELCH MD [facility] ONC [id number] 09/13/2017 09:43:00 09/13/2017 23:59:59 CLS Outpatient BELA AGUIRRE MD [facility] RAD SCREEN BREAST CA [id number] 08/23/2017 10:52:00 08/23/2017 13:50:00 DIS Outpatient KLEBER GIVENS MD [facility] ENDO ANEMIA [id number] 08/22/2017 09:00:00 08/22/2017 13:32:00 DIS Outpatient KLEBER GIVENS MD [facility] PREOP COLO/EGD [id number] 07/14/2017 09:04:00 07/14/2017 23:59:59 CLS Outpatient BELA AGUIRRE MD [facility] CARD PECTAL EDEMA, CHF [id number] 06/24/2017 16:50:00 06/26/2017 12:08:00 DIS Inpatient LADY RANDOLPH DO [facility] 4TH UTI,DEHYDRATION,N/V [id number] 08/06/2016 17:30:00 08/06/2016 23:59:59 CLS Outpatient MARIA EUGENIA MEADOWS [facility] LABNPT LETHARGY, LOW APPETITE , STRONG URINE ODOR [id number] 02/24/2016 13:16:00 02/24/2016 23:59:59 CLS Outpatient BELA AGUIRRE MD [facility] RAD R FOOT BRUISING, UNKNOWN INJURY [id number] 01/01/2016 21:49:00 01/01/2016 22:39:00 DIS Emergency ALEKSANDAR NUNN DO [facility] ER POSSIBLE BROKEN WRIST AND SHOULDER [id number] 07/31/2015 13:21:00 07/31/2015 23:59:59 CLS Outpatient CHINO DIAZ DO [facility] RAD SCREENING [id number] 08/01/2014 21:38:00 08/01/2014 23:28:00 DIS Emergency CECE GUTIERREZ APRN [facility] ER NOT URINATING [id number] 06/23/2014 11:56:00 06/23/2014 23:59:59 CLS Outpatient CHINO DIAZ DO [facility] RAD R ANKLE BRUISED AND SWELLEN [id number] 11/26/2013 08:31:00 11/26/2013 09:27:00 DIS Emergency ALEKSANDAR NUNN DO [facility] ER FALL/HEAD LAC [id number] 09/21/2013 21:31:00 09/22/2013 00:36:00 DIS Emergency FABIOLA NJ MD [facility] ER DEHYDRATION [id number] 03/07/2013 11:25:00 03/11/2013 14:10:00 DIS Inpatient [id number] 12/15/2015 14:47:00 Document Registration
--- NOTE | 2017-11-08 20:04 | ED Neurological Problem ---
General Chief Complaint: Neurological Problems Stated Complaint: DYSPNEA Source: EMS Exam Limitations: no limitations (CECE ALCANTAR APRN) Exam Limitations: clinical condition (FABIOLA NJ MD) History of Present Illness Time seen by provider: 20:02 Initial Comments To ER per EMS from local residence as part of fci with [place] services. 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 This evening she appeared to be having difficulty breathing according to staff so they summoned EMS. EMS arrived to find the patient twitching. The patient initially had oxygen saturation of 61% but her lungs were clear and she appeared to be holding her breath. Once in the back of the ambulance oxygen saturation increased to 100% on room air but the "twitching" persisted. Patient is nonverbal. Timing/Duration: 1 hour Severity: moderate (CECE ALCANTAR APRN) Associated Symptoms: muscle spasms (FABIOLA NJ MD) Allergies and Home Medications Allergies Coded Allergies: ciprofloxacin (Verified Allergy, Intermediate, Lip swelling, 06/24/17) sulfamethoxazole (Verified Allergy, Intermediate, Lip swelling, 06/24/17) trimethoprim (Verified Allergy, Intermediate, Lip swelling, 06/24/17) metformin (Verified Adverse Reaction, Unknown, 06/24/17) DECREASED KIDNEY FUNCTION PER [facility] STAFF Home Medications Acetaminophen 325 Mg Tablet, 550 MG PO Q4H PRN for PAIN-MILD, (Reported) Albuterol Sulfate 2.5 Mg/3 Ml Vial.neb, 2.5 MG NEB EVERY 4-6 HOURS PRN for SHORTNESS OF BREATH, (Reported) Ascorbic Acid 500 Mg Tablet, 500 MG PO DAILY, (Reported) Benzonatate 100 Mg Capsule, 100 MG PO Q8H PRN for COUGH, (Reported) Calcium Carbonate 300 Mg Tab.chew, 500 MG PO UD PRN for INDIGESTION, (Reported) NOT TO EXCEED 10 TABS IN 24 HOURS Carbamide Peroxide 15 Ml Drops, 10 DROPS OT UD PRN for EAR WAX, (Reported) 10 DROPS TO BOTH EARS 10 DAYS PRIOR TO NEXT VISIT Cyanocobalamin 1,000 Mcg/Ml Inj, 1,000 MCG IJ MONTHLY, (Reported) Diphenhydramine HCl 25 Mg Capsule, 25 MG PO Q6H PRN for ALLERGY SYMPTOMS, ( Reported) Diphenhydramine HCl 25 Mg Tablet, 50 MG PO Q6H PRN for ALLERGIC REACTIONS, ( Reported) TAKES 2 (25MG) TABLETS Eucalyptus/Menthol 1 Each Lozenge, 1 STEPHEN MM Q1HR PRN for SORE THROAT, (Reported) MAX 8 DROPS IN 24 HOURS Ferrous Sulfate 325 Mg Tablet, 325 MG PO DAILY, (Reported) Glimepiride 2 Mg Tablet, 2 MG PO DAILY, (Reported) Guaifenesin/Dextromethorphan 237 Ml Liquid, 10 ML PO Q4H PRN for COUGH, ( Reported) NOT TO EXCEED 6 DOSES IN 24 HOURS Hydrocortisone Acetate 28 Gm Oint...g., TP TID PRN for RASH, (Reported) APPLY TO ACUTE SKIN RASH - DO NOT APPLY TO OPEN SKIN Ibuprofen 200 Mg Capsule, 400 MG PO Q6H PRN for PAIN-MILD, (Reported) TAKES 2 (200MG) CAPSULES Lisinopril 10 Mg Tablet, 10 MG PO DAILY, (Reported) Loperamide HCl 2 Mg Capsule, PO UD PRN for DIARRHEA, (Reported) TAKE 2 TABS AFTER 1ST WATERY STOOL AND 1 TAB AFTER EACH WATERY STOOL THEREAFTER (NTE 4 DOSES IN 24 HOURS) Loratadine 10 Mg Tablet, 10 MG PO HS, (Reported) Lorazepam 0.5 Mg Tablet, 0.5 MG PO Q8H PRN for AGITATION, (Reported) Magnesium Hydroxide 400 Mg/5 Ml Oral.susp, 30 ML PO BID PRN for CONSTIPATION- 7TH LINE, (Reported) Montelukast Sodium 10 Mg Tablet, 10 MG PO HS, (Reported) Neomycin Flood/Bacitrac Zn/Poly 28.3 Gm Oint...g., TP BID PRN for SKIN ABRASIONS, ( Reported) Pantoprazole Sodium 40 Mg Tablet.dr, 40 MG PO DAILY, #90 Prescribed by: KLEBER GIVENS on 08/23/17 1324 Polyethylene Glycol 3350 17 Gm Powd.pack, 17 GM PO DAILY, (Reported) Tetrahydrozoline HCl 15 Ml Drops, 2 DROPS OU QID PRN for EYE REDNESS, (Reported) Triamcinolone Acet 15 Gm Cr, 15 GM TP TID PRN for RASH, (Reported) Constitutional: see HPI, other (unable to obtain due to patient being severely mentally retarded and nonverbal) (CECE ALCANTAR APRN) Other Unable to complete review of systems due to medical condition (FABIOLA NJ MD) Past Erqdfhf-Ylyyoq-Tixrmn Hx Patient Social History 2nd Hand Smoke Exposure: No Recent Hopitalizations: No (CECE ALCANTAR APRN) Immunizations Up To Date Tetanus Booster (TDap): More than 5yrs Date of Pneumonia Vaccine: Aug 18, 2010 Date of Influenza Vaccine: Aug 28, 2013 (CECE ALCANTAR APRN) Seasonal Allergies Seasonal Allergies: Yes (CECE ALCANTAR APRN) Surgeries History of Surgeries: Yes (LEFT HIP FX ORIF) Surgeries: Hysterectomy, Orthopedic (CECE ALCANTAR APRN) Respiratory History of Respiratory Disorde: No Currently Using CPAP: No (CECE ALCANTAR APRN) Cardiovascular History of Cardiac Disorders: Yes (CHF) Cardiac Disorders: Hypertension (CECE ALCANTAR APRN) Neurological History of Neurological Disord: Yes (SEVERE MR, NON-VERBAL) Neurological Disorders: Developmental Disorder (CECE ALCANTAR APRN) Reproductive System Hx Reproductive Disorders: No (HYSTERECTOMY) Female 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 (CECE ALCANTAR APRN) Genitourinary History of Genitourinary Disor: Yes Genitourinary Disorders: UTI-Chronic (CECE ALCANTAR APRN) Gastrointestinal History of Gastrointestinal Di: Yes Gastrointestinal Disorders: Gastroesophageal Reflux, Chronic Constipation (CECE ALCANTAR APRN) Musculoskeletal History of Musculoskeletal Dis: Yes (FX LEFT HIP, CONTRACTURE LEFT HAND) Musculoskeletal Disorders: Arthritis, Fractures, Contracture (CECE ALCANTAR APRN) Endocrine History of Endocrine Disorders: Yes Endocrine Disorders: Diabetes, Non-Insulin dep (CECE ALCANTAR APRN) HEENT History of HEENT Disorders: No (CECE ALCANTAR APRN) Cancer History of Cancer: No (CECE ALCANTAR APRN) Psychosocial History of Psychiatric Problem: Yes (SEVERE MR) (CECE ALCANTAR APRN) Integumentary History of Skin or Integumenta: No Skin/Integumentary Disorders: Recent Skin Changes (CECE ALCANTAR APRN) Blood Transfusions History of Blood Disorders: No Adverse Reaction to a Blood Tr: No (CECE ALCANTAR APRN) Family Medical History Significant Family History: No Pertinent Family Hx Family Medial History: Patient reports no known family medical history. (CECE ALCANTAR APRN) Other History reviewed chart as patient is unable to answer due to medical condition. Family Medial History: Patient reports no known family medical history. (FABIOLA NJ MD) Physical Exam Vital Signs Vital Sign - Last 12Hours 11/08/17 19:59 Temp 94.9 Pulse 126 Resp 30 B/P (MAP) 88/57 (67) Pulse Ox 95 O2 Delivery Room Air (FABIOLA NJ MD) Vital Signs Capillary Refill : (CECE ALCANTAR APRN) General Appearance: no apparent distress (CECE ALCANTAR APRN) General Appearance: WD/WN, severe distress HEENT: PERRL/EOMI, pharynx normal, other (drooling) Neck: non-tender, supple Respiratory: respiratory distress, crackles (bilateral basilar crackles) Cardiovascular: no murmur, tachycardia Peripheral Pulses: 1+ Dorsalis Pedis (R), 1+ Left Dors-Pedis (L), 1+ Radial Pulses (R), 1+ Radial Pulses (L) Gastrointestinal: non tender, soft Back: normal inspection, no CVA tenderness, no vertebral tenderness, other ( kyphotic) Extremities: non-tender, normal inspection, pedal edema Neurologic/Psychiatric: motor weakness, disoriented x 3, other (twitching movements upper extremities bilateral with rightward gaze) Crainal Nerves: other (rightward gaze. Otherwise unresponsive) Coordination/Gait: other (unresponsive) Motor/Sensory: other (twitching movements bilateral upper extremities) Skin: normal color, diaphoresis, other (drooling) (FABIOLA NJ MD) Focused Exam Evaluation Sepsis Stage: Septic Shock Possible Source: Unknown Lactate Level Laboratory Tests 11/08/17 19:59: Lactic Acid Level 4.95*H (FABIOLA NJ MD) Time of Focused Exam: 21:21 Respiratory: Crackles (mild bilateral bases), No Wheezing Cardiovascular: Regular Rate, Rhythm, No Murmur Capillary Refill: Less Than 3 Seconds Peripheral Pulses: 2+ Dorsalis Pedis (R), 2+ Left Dors-Pedis (L), 2+ Radial Pulses (R), 2+ Radial Pulses (L) Skin: normal color, warm/dry Lactic Acid Level Laboratory Tests Test 11/08/17 19:59 Lactic Acid Level 4.95 MMOL/L (0.50-2.00) *H (FABIOLA NJ MD) Lumen: triple Central Line Procedure: betadine prep, sterile drapes applied, sterile dressing applied Position: internal jugular (R) Anesthesia: Lidocaine Volume Anesthetic (ccs): 3 Complications: none Post Position: sutured Progress Central line placed via ultrasound guidance 2 sticks with no complications. Good blood return and flushes easily. Sutured in place. Placed by Cece Alcantar APRN under my direct supervision throughout entire procedure. Tolerated procedure well with no complications. (FABIOLA NJ MD) Date of ETT Placement: Nov 08, 2017 Time of ETT Placement: 20:18 Intubation Method: orotracheal Tube Size: 7.5 Medications: Etomidate, Fentanyl, Succinylcholine, Versed Positive End Tide CO2: Yes Breath Sounds after Intubation: bilateral-equal Intubation Complications: no complications Post Intubation Xray: Yes Progress 7.5-223 cm at the lip. Tolerated procedure well. No palpitations. Intubated via video scope. Intubated by Cece Alcantar APRN under my direct supervision throughout entire procedure. (FABIOLA NJ MD) Progress/Results/Core Measures Results/Orders Lab Results Laboratory Tests Test 11/08/17 19:59 11/08/17 20:27 Range/Units White Blood Count 11.1 H 4.3-11.0 10^3/uL Red Blood Count 3.32 L 4.35-5.85 10^6/uL Hemoglobin 10.9 L 11.5-16.0 G/DL Hematocrit 32 L 35-52 % Mean Corpuscular Volume 97 80-99 FL Mean Corpuscular Hemoglobin 33 25-34 PG Mean Corpuscular Hemoglobin Concent 34 32-36 G/DL Red Cell Distribution Width 15.8 H 10.0-14.5 % Platelet Count 113 L 130-400 10^3/uL Mean Platelet Volume 11.2 H 7.4-10.4 FL Neutrophils (%) (Auto) 76 H 42-75 % Lymphocytes (%) (Auto) 16 12-44 % Monocytes (%) (Auto) 7 0-12 % Eosinophils (%) (Auto) 1 0-10 % Basophils (%) (Auto) 0 0-10 % Neutrophils # (Auto) 8.5 H 1.8-7.8 X 10^3 Lymphocytes # (Auto) 1.7 1.0-4.0 X 10^3 Monocytes # (Auto) 0.8 0.0-1.0 X 10^3 Eosinophils # (Auto) 0.1 0.0-0.3 10^3/uL Basophils # (Auto) 0.0 0.0-0.1 10^3/uL Sodium Level 143 135-145 MMOL/L Potassium Level 5.7 H 3.6-5.0 MMOL/L Chloride Level 109 H 98-107 MMOL/L Carbon Dioxide Level 20 L 21-32 MMOL/L Anion Gap 14 5-14 MMOL/L Blood Urea Nitrogen 38 H 7-18 MG/DL Creatinine 1.53 H 0.60-1.30 MG/DL Estimat Glomerular Filtration Rate 33 BUN/Creatinine Ratio 25 Glucose Level 96 70-105 MG/DL Lactic Acid Level 4.95 *H 0.50-2.00 MMOL/L Calcium Level 9.6 8.5-10.1 MG/DL Total Bilirubin 0.6 0.1-1.0 MG/DL Aspartate Amino Transf (AST/SGOT) 52 H 5-34 U/L Alanine Aminotransferase (ALT/SGPT) 43 0-55 U/L Alkaline Phosphatase 165 H 40-136 U/L Total Protein 7.3 6.4-8.2 GM/DL Albumin 3.6 3.2-4.5 GM/DL Urine Color YELLOW Urine Clarity VERY CLOUDY H Urine pH 5 5-9 Urine Specific Gonzales 1.010 L 1.016-1.022 Urine Protein NEGATIVE NEGATIVE Urine Glucose (UA) NEGATIVE NEGATIVE Urine Ketones NEGATIVE NEGATIVE Urine Nitrite NEGATIVE NEGATIVE Urine Bilirubin NEGATIVE NEGATIVE Urine Urobilinogen NORMAL NORMAL MG/DL Urine Leukocyte Esterase 3+ H NEGATIVE Urine RBC (Auto) 1+ H NEGATIVE Urine RBC 0-2 /HPF Urine WBC 10-25 H /HPF Urine Crystals NONE /LPF Urine Bacteria LARGE H /HPF Urine Casts NONE /LPF Urine Mucus NEGATIVE /LPF Urine Culture Indicated YES (FABIOLA NJ MD) My Orders Orders - FABIOLA NJ MD Saline Lock/Iv-Start (11/08/17 20:04) Ns Iv 1000 Ml (Sodium Chloride 0.9%) (11/08/17 20:15) Norepinephrine (Levophed) (11/08/17 20:54) Ns (Ivpb) (Sodium Chloride 0.9%) (11/08/17 20:55) Ekg Tracing (11/08/17 21:07) Piperacillin Sodium/Tazobactam (Zosyn Vi (11/08/17 21:15) Arterial Blood Gas (11/08/17 21:11) Ns Iv 1000 Ml (Sodium Chloride 0.9%) (11/08/17 21:11) Ns (Ivpb) (Sodium Chloride 0.9% Ivpb Bag (11/08/17 21:16) (FABIOLA NJ MD) Medications Given in ED Current Medications Medications Dose Ordered Sig/Napoleon Route Start Time Stop Time Status Last Admin Dose Admin Lorazepam 1 mg ONCE ONCE IVP 11/08/17 20:15 11/08/17 20:16 DC 11/08/17 20:02 1 MG Sodium Chloride 1,647.06 ml @ 823.53 mls/hr PRN PRN IV 11/08/17 20:15 11/08/17 20:12 823.53 MLS/HR (FABIOLA NJ MD) Vital Signs/I&O Vital Sign - Last 12Hours 11/08/17 19:59 Temp 94.9 Pulse 126 Resp 30 B/P (MAP) 88/57 (67) Pulse Ox 95 O2 Delivery Room Air (FABIOLA NJ MD) Progress Note : Progress Note Seen and evaluated on arrival by EMS. Seen by myself and Cece Alcantar APRN. Patient has tenuous blood pressure. Sepsis workup initiated. Patient is in septic shock with blood pressure less than 90 systolic. High-volume fluid resuscitation initiated shortly after arrival. Patient noted to be hypothermic and hypotensive as well as tachycardic. Patient smells of foul-smelling urine concerning for urinary tract infection. IV initiated 1 and second line attempted but failed. Patient will require central line due to tenuous condition. This is ultimately placed and patient was intubated as well due to difficulty with airway control and managing secretions. Endotracheal intubation and central line placed under emergent conditions. Patient did receive Versed and fentanyl postintubation for sedation. During central line placement, patient received 50 mg of rocuronium. Blood pressure remains low after initiation of high-volume fluids so Levophed will be initiated. Patient' s care team from [place] is at bedside and understands the critical nature of this patient. She is a full code and is under the court ordered guardian system. Patient status is critical and staff is aware and informed of concerns. (FABIOLA NJ MD) ECG Initial ECG Impression Date: Nov 08, 2017 Initial ECG Impression Time: 21:02 Initial ECG Rate: 83 Initial ECG Rhythm: Normal Sinus Comment Sinus rhythm with normal axis. No evidence of ST elevation CT. Compared to 10/29 shows no significant changes. Interpreted by me. (FABIOLA NJ MD) Diagnostic Imaging Diagonstic Imaging: Xray Plain Films/CT/US/NM/MRI: chest Comments VIA [facility] [place], [place] NAME: CLAUDETTE BRIONES [facility] REC#: [id number] PT STATUS: REG ER : 1945 PHYSICIAN: CCEE ALCANTAR [employer]IC[employer] TRAINER ADMIT DATE: 11/08/17/ER Draft Date of Exam:11/08/17 CHEST 1 VIEW, AP/PA ONLY INDICATION: Intubated COMPARISON: 06/24/17 FINDINGS: Single view of the chest demonstrates a right IJ catheter at the SVC right atrial junction. The ET tube midtrachea. NG tube is in the stomach. Basilar atelectasis seen, left greater than right. The heart is prominent with slight central vascular congestion. There is no pneumothorax. IMPRESSION: 1. Well-positioned support lines without pneumothorax 2. Cardiac enlargement with central vascular congestion and basilar atelectasis. Dictated on workstation # [id number] Dict: 11/08/172106 Trans: 11/08/172111 [facility] [id number] Interpreted by: RED ATKINSON Electronically signed by: Reviewed: Reviewed by Me (FABIOLA NJ MD) Departure Communication (Admissions) Time/Spoke to Admitting Phy: 21:11 (FABIOLA NJ MD) Impression Impression: Primary Impression: Septic shock Additional Impression: Urinary tract infection Qualified Codes: N30.00 - Acute cystitis without hematuria Disposition: ADMITTED INPATIENT Condition: Critical Admissions Decision to Admit Reason: Admit from ER (General) Decision to Admit/Date: Nov 08, 2017 Time/Decision to Admit Time: 21:11 (FABIOLA NJ MD) Departure-Patient Inst. Referrals: EBLA AGUIRRE MD (PCP/Family) Primary Care Physician CECE ALCANTAR APRN Nov 08, 2017 20:04 FABIOLA NJ MD Nov 08, 2017 20:59
[2017-11-08] MEDS ORDERED: NS IV PRN ×2 (20:15→22:45)
[2017-11-08 20:19] LABS: BASOPHILS % (AUTO) 0 % (0-10); EOSINOPHILS # (AUTO) 0.1 10^3/uL (0.0-0.3); EOSINOPHILS % (AUTO) 1 % (0-10); HEMATOCRIT 32 % (35-52); HEMOGLOBIN 10.9 G/DL (11.5-16.0); LYMPHOCYTES # (AUTO) 1.7 X 10^3 (1.0-4.0); LYMPHOCYTES % (AUTO) 16 % (12-44); MEAN CORPUSCULAR HEMOGLOBIN 33 PG (25-34); MEAN CORPUSCULAR HGB CONC 34 G/DL (32-36); MEAN CORPUSCULAR VOLUME 97 FL (80-99); MEAN PLATELET VOLUME 11.2 FL (7.4-10.4); MONOCYTES # (AUTO) 0.8 X 10^3 (0.0-1.0); MONOCYTES % (AUTO) 7 % (0-12); NEUTROPHILS # (AUTO) 8.5 X 10^3 (1.8-7.8); NEUTROPHILS % (AUTO) 76 % (42-75); PLATELET COUNT 113 10^3/uL (130-400); RED BLOOD COUNT 3.32 10^6/uL (4.35-5.85); RED CELL DISTRIBUTION WIDTH 15.8 % (10.0-14.5); WHITE BLOOD COUNT 11.1 10^3/uL (4.3-11.0)
[2017-11-08 20:36] LABS: BILIRUBIN,URINE NEGATIVE (NEGATIVE); CLARITY,URINE VERY CLOUDY; COLOR,URINE YELLOW; GLUCOSE, URINE (UA) NEGATIVE (NEGATIVE); KETONES,URINE NEGATIVE (NEGATIVE); LEUKOCYTE ESTERASE ,URINE 3+ (NEGATIVE); NITRITE,URINE NEGATIVE (NEGATIVE); PH,URINE 5 (5-9); PROTEIN,URINE NEGATIVE (NEGATIVE); UROBILINOGEN,URINE NORMAL (NORMAL)
[2017-11-08 20:37] LABS: ALBUMIN 3.6 GM/DL (3.2-4.5); BILIRUBIN,TOTAL 0.6 MG/DL (0.1-1.0); CALCIUM 9.6 MG/DL (8.5-10.1); CREATININE SERUM 1.53 MG/DL (0.60-1.30); POTASSIUM 5.7 MMOL/L (3.6-5.0); TOTAL PROTEIN 7.3 GM/DL (6.4-8.2)
[2017-11-08 20:46] LABS: BACTERIA,URINE LARGE /HPF; RBC,URINE 0-2 /HPF
[2017-11-08] MEDS ORDERED: NOREPINEPHRINE 4 MG/4 ML (LEVOPHED) AMP IV ONE (20:54)
[2017-11-08] MEDS ORDERED: NS (IVPB) 250 ML ONE (20:55)
[2017-11-08] MEDS: NOREPINEPHRINE 4 MG in NS (IVPB) 250 ML IV SCH ×2 (21:03→22:38)
[2017-11-08] MEDS ORDERED: NS IV 1000 ML 1,000 ML IV ONE (21:11)
--- NOTE | 2017-11-08 21:13 | Diagnostic Imaging Report ---
INDICATION: Intubated COMPARISON: 06/24/17 FINDINGS: Single view of the chest demonstrates a right IJ catheter at the SVC right atrial junction. The ET tube midtrachea. NG tube is in the stomach. Basilar atelectasis seen, left greater than right. The heart is prominent with slight central vascular congestion. There is no pneumothorax. IMPRESSION: 1. Well-positioned support lines without pneumothorax 2. Cardiac enlargement with central vascular congestion and basilar atelectasis. Dictated by: Dictated on workstation # [id number]
[2017-11-08] MEDS ORDERED: PIPERACILLIN/TAZO 4.5 GM VIAL (ZOSYN) IV ONE (21:15)
[2017-11-08] MEDS ORDERED: NS (IVPB) 100 ML ONE (21:16)
[2017-11-08 21:25] LABS: ABG BASE EXCESS -9.1 MMOL/L (-2.5-2.5); ABG OXYGEN SATURATION 100 % (94-100); ABG PCO2 35 MMHG (35-45); ABG PO2 272 MMHG (79-93); ABG TCO2 17.9 MMOL/L (21.0-31.0)
--- OUTSIDE RECORDS SUMMARY | 2017-11-08 21:27 | XMS REPORT | Continuity of Care Document ---
Author Author [facility] Organization [facility] Address Unknown Phone Unavailable Allergies Active Description Code Type Severity Reaction Onset Reported/Identified Relationship to Patient Clinical Status Yes ciprofloxacin HCl [id number] Drug Allergy Moderate Lip swelling 03/06/2013 Yes ciprofloxacin [id number] Drug Allergy Moderate Lip swelling 06/24/2017 Yes sulfamethoxazole [id number] Drug Allergy Moderate Lip swelling 06/24/2017 Yes trimethoprim [id number] Drug Allergy Moderate Lip swelling 06/24/2017 Yes metformin [id number] Drug Allergy Unknown N/A 06/24/2017 Medications There [...] E849.7 ACCID IN RESIDENT INSTIT 11/26/2013 ALEKSANDAR UNNN DO Ot E888.9 FALL NOS 11/26/2013 ALEKSANDAR NUNN DO Ot V06.5 TETANUS-DIPHTHERIA [TD][DT] 08/01/2014 CECE GUTIERREZ APRN Ot 250.00 DIAB LILY WO COMPL, TYPE II OR UNSPEC TY 08/01/2014 CECE GUTIERREZ BUSHER HELPER Ot 319 UNSPECIFIED INTELLECTUAL DISABILITIES 08/01/2014 CECE [...] ALEKSANDAR Quintanilla Ot Y92.[address] IN [facility] 01/01/2016 EDOUARD PATEL ALEKSANDAR Quintanilla Ot Y99.8 [...] EXTERNAL CAUSE STATUS 08/19/2016 MARIA EUGENIA MEADOWS SUPERVISOR TUMBLERS Ot R53.83 OTHER FATIGUE 08/19/2016 MARIA EUGENIA MEADOWS SUPERVISOR TUMBLERS Ot R63.0 ANOREXIA 08/19/2016 MARIA EUGENIA MEADOWS SUPERVISOR TUMBLERS Ot R82.99 OTHER ABNORMAL FINDINGS IN URINE 09/07/2016 MARIA EUGENIA MEADOWS SUPERVISOR TUMBLERS Ot R53.83 OTHER FATIGUE 09/07/2016 MARIA EUGENIA MEADOWS SUPERVISOR TUMBLERS Ot R63.0 ANOREXIA 09/07/2016 MARIA EUGENIA MEADOWS SUPERVISOR TUMBLERS Ot R82.99 OTHER ABNORMAL FINDINGS IN URINE 09/21/2016 MARIA EUGENIA MEADOWS SUPERVISOR TUMBLERS Ot R53.83 OTHER FATIGUE 09/21/2016 MARIA EUGENIA MEADOWS SUPERVISOR TUMBLERS Ot R63.0 ANOREXIA 09/21/2016 MARIA EUGENIA MEADOWS SUPERVISOR TUMBLERS Ot R82.99 OTHER ABNORMAL FINDINGS IN URINE [...] FOOT, INITIAL ENCOUNT 06/24/2017 CARLA BERRIOS, BELA Ochao Ot X58.XXXA EXPOSURE TO OTHER SPECIFIED FACTORS, INI 06/24/2017 CARLA BERRIOS, BELA Ochoa Ot Y99.8 OTHER EXTERNAL CAUSE STATUS 06/24/2017 MARIA EUGENIA MEADOWS SUPERVISOR TUMBLERS Ot R53.83 OTHER FATIGUE 06/24/2017 MARIA EUGENIA MEADOWS SUPERVISOR TUMBLERS Ot R63.0 ANOREXIA 06/24/2017 MARIA EUGENIA MEADOWS SUPERVISOR TUMBLERS Ot R82.99 OTHER ABNORMAL FINDINGS IN URINE [...] EXTERNAL CAUSE STATUS 06/24/2017 MARIA EUGENIA MEADOWS SUPERVISOR TUMBLERS Ot R53.83 OTHER FATIGUE 06/24/2017 MARIA EUGENIA MEADOWS SUPERVISOR TUMBLERS Ot R63.0 ANOREXIA 06/24/2017 MARIA EUGENIA MEADOWS SUPERVISOR TUMBLERS Ot R82.99 OTHER ABNORMAL FINDINGS IN URINE [...] SPECIF 06/26/2017 LADY RANDOLPH DO Ot 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 ORAL HYPOGLYC 08/04/2017 BELA [...] 08/23/2017 KLEBER GIVENS MD, Ot Z79.899 OTHER GROUP HOME (CURRENT) DRUG THERAPY 08/25/2017 KLEBER GIVENS MD [...] 08/25/2017 KLEBER GIVENS MD, Ot Z79.899 OTHER GROUP HOME (CURRENT) DRUG THERAPY 08/30/2017 KLEBER GIVENS MD, [...] 08/30/2017 KLEBER GIVENS MD, Ot Z79.899 OTHER GROUP HOME (CURRENT) DRUG THERAPY 09/13/2017 BELA AGUIRRE MD, [...] 09/14/2017 RENETTA WELCH MD, Ot Z79.899 OTHER RUM PROCESSING OPERATOR (CURRENT) DRUG THERAPY 09/16/2017 KLEBER GIVENS MD, [...] 09/16/2017 KLEBER GIVENS MD, Ot Z79.899 OTHER GROUP HOME (CURRENT) DRUG THERAPY 10/24/2017 BELA AGUIRRE MD, [...] culture - 08/06/16 17:30 Bacterial urine culture [id number] NRG COLONY COUNT 10,000/ML - 100,000/ML NRG FTX;REPORTABLE SENSITIVITY REPORTED 08/09/16 8:10 NRG URINE CULTURE RESULTS 10,000/ML - 100,000/ML [facility] Bacterial susceptibility panel - 08/06/16 17:30 Gentamicin [...] susceptibility test by minimum inhibitory concentration - [facility] Bacterial susceptibility panel - 08/06/16 17:30 Gentamicin [...] culture - 06/24/17 15:45 Bacterial urine culture [id number] NRG COLONY COUNT 10,000/ML - 100,000/ML NRG [...] susceptibility test by minimum inhibitory concentration S [facility] Bacterial susceptibility panel - 06/24/17 15:45 Gentamicin [...] plasma albumin measurement (mass/volume) 3.2 g/dL 3.2-4.5 Complete blood count (CBC) with automated white blood cell (WBC) differential - 11/08/17 19:59 Blood leukocytes automated count (number/volume) 11.1 10*3/uL 4.3-11.0 Blood erythrocytes automated count (number/volume) 3.32 10*6/uL 4.35-5.85 Venous blood hemoglobin measurement (mass/volume) 10.9 g/dL 11.5-16.0 Blood hematocrit (volume fraction) 32 % 35-52 Automated erythrocyte mean corpuscular volume 97 [foz_us] 80-99 Automated erythrocyte mean corpuscular hemoglobin (mass per erythrocyte) 33 pg 25-34 Automated erythrocyte mean corpuscular hemoglobin concentration measurement ( mass/volume) 34 g/dL 32-36 Automated erythrocyte distribution width ratio 15.8 % 10.0-14.5 Automated blood platelet count (count/volume) 113 10*3/uL 130-400 Automated blood platelet mean volume measurement 11.2 [foz_us] 7.4-10.4 Automated blood neutrophils/100 leukocytes 76 % 42-75 Automated blood lymphocytes/100 leukocytes 16 % 12-44 Blood monocytes/100 leukocytes 7 % 0-12 Automated blood eosinophils/100 leukocytes 1 % 0-10 Automated blood basophils/100 leukocytes 0 % 0-10 Blood neutrophils automated count (number/volume) 8.5 10*3 1.8-7.8 Blood lymphocytes automated count (number/volume) 1.7 10*3 1.0-4.0 Blood monocytes automated count (number/volume) 0.8 10*3 0.0-1.0 Automated eosinophil count 0.1 10*3/uL 0.0-0.3 Automated blood basophil count (count/volume) 0.0 10*3/uL 0.0-0.1 Comprehensive metabolic panel - 11/08/17 19:59 Serum or plasma sodium measurement (moles/volume) 143 mmol/L 135-145 Serum or plasma potassium measurement (moles/volume) 5.7 mmol/L 3.6-5.0 Serum or plasma chloride measurement (moles/volume) 109 mmol/L 98-107 Carbon dioxide 20 mmol/L 21-32 Serum or plasma anion gap determination (moles/volume) 14 mmol/L 5-14 Serum or plasma urea nitrogen measurement (mass/volume) 38 mg/dL 7-18 Serum or plasma creatinine measurement (mass/volume) 1.53 mg/dL 0.60-1.30 Serum or plasma urea nitrogen/creatinine mass ratio 25 NRG Serum or plasma creatinine measurement with calculation of estimated glomerular filtration rate 33 NRG Serum or plasma glucose measurement (mass/volume) 96 mg/dL 70-105 Serum or plasma calcium measurement (mass/volume) 9.6 mg/dL 8.5-10.1 Serum or plasma total bilirubin measurement (mass/volume) 0.6 mg/dL 0.1-1.0 Serum or plasma alkaline phosphatase measurement (enzymatic activity/volume) 165 U/L 40-136 Serum or plasma aspartate aminotransferase measurement (enzymatic activity/ volume) 52 U/L 5-34 Serum or plasma alanine aminotransferase measurement (enzymatic activity/volume ) 43 U/L 0-55 Serum or plasma protein measurement (mass/volume) 7.3 g/dL 6.4-8.2 Serum or plasma albumin measurement (mass/volume) 3.6 g/dL 3.2-4.5 Blood lactic acid measurement (moles/volume) - 11/08/17 19:59 Blood lactic acid measurement (moles/volume) 4.95 mmol/L 0.50-2.00 Complete urinalysis with reflex to culture - 11/08/17 20:27 Urine color determination YELLOW NRG Urine clarity determination VERY CLOUDY NRG Urine pH measurement by test [...] NORMAL Urine leukocyte esterase detection by dipstick 3+ NEGATIVE Automated urine sediment erythrocyte count by [...] urinalysis with reflex to culture YES NRG Encounters ACCT No. Visit Date/Time Discharge Status Pt. Type Provider Facility Loc./Unit Complaint [id number] 10/03/2017 10:12:00 10/03/2017 23:59:59 CLS Outpatient BELA AGUIRRE MD [facility] RAD SCREENING [id number] 09/28/2017 11:36:00 09/28/2017 23:59:59 CLS Outpatient RENETTA WELCH MD [facility] ONC [id number] 09/13/2017 09:43:00 09/13/2017 23:59:59 CLS Outpatient BELA AGUIRRE MD [facility] RAD SCREEN BREAST CA [id number] 08/23/2017 10:52:00 08/23/2017 13:50:00 DIS Outpatient KLEBER GIVENS MD [facility] ENDO ANEMIA [id number] 08/22/2017 09:00:00 08/22/2017 13:32:00 DIS Outpatient KLEBER GIVENS MD [facility] PREOP COLO/EGD [id number] 07/14/2017 09:04:00 07/14/2017 23:59:59 CLS Outpatient BELA AGUIRRE MD [facility] CARD PECTAL EDEMA, CHF [id number] 06/24/2017 16:50:00 06/26/2017 12:08:00 DIS Inpatient LADY RANDOLPH DO [facility] 4TH UTI,DEHYDRATION,N/V [id number] 08/06/2016 17:30:00 08/06/2016 23:59:59 CLS Outpatient MARIA EUGENIA MEADOWS [facility] LABNPT LETHARGY, LOW APPETITE , STRONG URINE ODOR [id number] 02/24/2016 13:16:00 02/24/2016 23:59:59 CLS Outpatient BELA AGUIRRE MD [facility] RAD R FOOT BRUISING, UNKNOWN INJURY [id number] 01/01/2016 21:49:00 01/01/2016 22:39:00 DIS Emergency EDOUARD ALEKSANDAR PATEL [facility] ER POSSIBLE BROKEN WRIST AND SHOULDER [id number] 07/31/2015 13:21:00 07/31/2015 23:59:59 CLS Outpatient CHINO DIAZ DO [facility] RAD SCREENING [id number] 08/01/2014 21:38:00 08/01/2014 23:28:00 DIS Emergency CECE GUTIERREZ APRN [facility] ER NOT URINATING [id number] 06/23/2014 11:56:00 06/23/2014 23:59:59 CLS Outpatient CHINO DIAZ DO [facility] RAD R ANKLE BRUISED AND SWELLEN [id number] 11/26/2013 08:31:00 11/26/2013 09:27:00 DIS Emergency EDOUARD ALEKSANDAR PATEL [facility] ER FALL/HEAD LAC [id number] 09/21/2013 21:31:00 09/22/2013 00:36:00 DIS Emergency FABIOLA NJ MD [facility] ER DEHYDRATION [id number] 03/07/2013 11:25:00 03/11/2013 14:10:00 DIS Inpatient [id number] 11/08/2017 20:20:00 Document Registration [id number] 12/15/2015 14:47:00 Document Registration
[2017-11-08 21:28] LABS: ALLENS TEST YES-POS; INSPIRED O2 100% FIO2
[2017-11-08 21:29] LABS: PATIENT TEMP 95.1; VENTILATOR YES
[2017-11-08 21:31] LABS: ABG PH 7.28 (7.37-7.43)
[2017-11-08] MEDS ORDERED: PROPOFOL DRIP (ICU) 100 ML IV ONE (22:23)
[2017-11-08] MEDS ORDERED: PROPOFOL DRIP (ICU) 100 ML IV SCH (22:30)
[2017-11-08] MEDS: NS IV 1000 ML 1,000 ML IV SCH (22:39)
[2017-11-08] MEDS: VANCOMYCIN 1 GM/NS 250 ML IVPB IV SCH ×2 (22:42)
[2017-11-09] VITALS (38 sets, daily range): BP systolic 14–124; BP diastolic 29–61
[2017-11-09] MEDS: NS IV 1000 ML 1,000 ML IV SCH ×4 (01:35→19:00)
[2017-11-09] MEDS: PIPERACILLIN/TAZOBACTAM 4.5 GM/NS100 ML IVPB IV SCH ×6 (03:28→18:53)
[2017-11-09 04:24] LABS: BASOPHILS % (AUTO) 0 % (0-10); EOSINOPHILS # (AUTO) 0.1 10^3/uL (0.0-0.3); EOSINOPHILS % (AUTO) 1 % (0-10); HEMATOCRIT 25 % (35-52); HEMOGLOBIN 8.6 G/DL (11.5-16.0); LYMPHOCYTES # (AUTO) 1.1 X 10^3 (1.0-4.0); LYMPHOCYTES % (AUTO) 13 % (12-44); MEAN CORPUSCULAR HEMOGLOBIN 33 PG (25-34); MEAN CORPUSCULAR HGB CONC 34 G/DL (32-36); MEAN CORPUSCULAR VOLUME 97 FL (80-99); MEAN PLATELET VOLUME 10.2 FL (7.4-10.4); MONOCYTES # (AUTO) 0.9 X 10^3 (0.0-1.0); MONOCYTES % (AUTO) 11 % (0-12); NEUTROPHILS # (AUTO) 6.4 X 10^3 (1.8-7.8); NEUTROPHILS % (AUTO) 76 % (42-75); PLATELET COUNT 91 10^3/uL (130-400); RED BLOOD COUNT 2.58 10^6/uL (4.35-5.85); WHITE BLOOD COUNT 8.5 10^3/uL (4.3-11.0)
[2017-11-09 04:39] LABS: ABG BASE EXCESS -8.6 MMOL/L (-2.5-2.5); ABG OXYGEN SATURATION 100 % (94-100); ABG PCO2 26 MMHG (35-45); ABG PO2 110 MMHG (79-93); ABG TCO2 16.2 MMOL/L (21.0-31.0)
[2017-11-09 04:42] LABS: ALLENS TEST YES-POS; INSPIRED O2 25%; PATIENT TEMP 97.7; VENTILATOR YES
[2017-11-09 04:43] LABS: CALCIUM 7.4 MG/DL (8.5-10.1); CREATININE SERUM 1.12 MG/DL (0.60-1.30); MAGNESIUM 1.3 MG/DL (1.8-2.4); PHOSPHORUS 2.3 MG/DL (2.3-4.7); POTASSIUM 4.5 MMOL/L (3.6-5.0)
[2017-11-09] MEDS: MAGNESIUM 1 GM/100 ML IVPB 100 ML IV SCH ×5 (04:50→08:05)
[2017-11-09] MEDS: POTASSIUM CL 10MEQ/50ML IVPB 50 ML IV SCH (04:50)
[2017-11-09] MEDS: KCL 20 MEQ TAB (K-DUR) PO SCH (04:51)
[2017-11-09] MEDS: NOREPINEPHRINE 4 MG in NS (IVPB) 250 ML IV SCH ×3 (05:43→20:56)
--- NOTE | 2017-11-09 06:41 | Pulmonary Consultation ---
History of Present Illness History of Present Illness Date of Consultation 11/09/17 06:36 Time Seen by Provider: 06:36 Date of Admission History of Present Illness 72yo with hx of severe MR presented from ECF secondary to MS changes and hypoxia and questionable seizure activity. Pt was intubated in ED secondary to progressive respiratory failure and hypoxia. Pt been refusing medical care over the last 6 months per [place] staffing. Pt is currently in severe septic shock and requiring Levophed. She was started on vanco and Zosyn in the ED and admitted to ICU. I am consulted for ICU management. Allergies and Home Medications Allergies Coded Allergies: ciprofloxacin (Verified Allergy, Intermediate, Lip swelling, 06/24/17) sulfamethoxazole (Verified Allergy, Intermediate, Lip swelling, 06/24/17) trimethoprim (Verified Allergy, Intermediate, Lip swelling, 06/24/17) metformin (Verified Adverse Reaction, Unknown, 06/24/17) DECREASED KIDNEY FUNCTION PER [place] STAFF Home Medications Acetaminophen 325 Mg Tablet, 550 MG PO Q4H PRN for PAIN-MILD, (Reported) Albuterol Sulfate 2.5 Mg/3 Ml Vial.neb, 2.5 MG NEB EVERY 4-6 HOURS PRN for SHORTNESS OF BREATH, (Reported) Ascorbic Acid 500 Mg Tablet, 500 MG PO DAILY, (Reported) Benzonatate 100 Mg Capsule, 100 MG PO Q8H PRN for COUGH, (Reported) Calcium Carbonate 300 Mg Tab.chew, 500 MG PO UD PRN for INDIGESTION, (Reported) NOT TO EXCEED 10 TABS IN 24 HOURS Carbamide Peroxide 15 Ml Drops, 10 DROPS OT UD PRN for EAR WAX, (Reported) 10 DROPS TO BOTH EARS 10 DAYS PRIOR TO NEXT VISIT Cyanocobalamin 1,000 Mcg/Ml Inj, 1,000 MCG IJ MONTHLY, (Reported) Diphenhydramine HCl 25 Mg Capsule, 25 MG PO Q6H PRN for ALLERGY SYMPTOMS, ( Reported) Diphenhydramine HCl 25 Mg Tablet, 50 MG PO Q6H PRN for ALLERGIC REACTIONS, ( Reported) TAKES 2 (25MG) TABLETS Eucalyptus/Menthol 1 Each Lozenge, 1 STEPHEN MM Q1HR PRN for SORE THROAT, (Reported) MAX 8 DROPS IN 24 HOURS Ferrous Sulfate 325 Mg Tablet, 325 MG PO DAILY, (Reported) Glimepiride 2 Mg Tablet, 2 MG PO DAILY, (Reported) Guaifenesin/Dextromethorphan 237 Ml Liquid, 10 ML PO Q4H PRN for COUGH, ( Reported) NOT TO EXCEED 6 DOSES IN 24 HOURS Hydrocortisone Acetate 28 Gm Oint...g., TP TID PRN for RASH, (Reported) APPLY TO ACUTE SKIN RASH - DO NOT APPLY TO OPEN SKIN Ibuprofen 200 Mg Capsule, 400 MG PO Q6H PRN for PAIN-MILD, (Reported) TAKES 2 (200MG) CAPSULES Lisinopril 10 Mg Tablet, 10 MG PO DAILY, (Reported) Loperamide HCl 2 Mg Capsule, PO UD PRN for DIARRHEA, (Reported) TAKE 2 TABS AFTER 1ST WATERY STOOL AND 1 TAB AFTER EACH WATERY STOOL THEREAFTER (NTE 4 DOSES IN 24 HOURS) Loratadine 10 Mg Tablet, 10 MG PO HS, (Reported) Lorazepam 0.5 Mg Tablet, 0.5 MG PO Q8H PRN for AGITATION, (Reported) Magnesium Hydroxide 400 Mg/5 Ml Oral.susp, 30 ML PO BID PRN for CONSTIPATION- 7TH LINE, (Reported) Montelukast Sodium 10 Mg Tablet, 10 MG PO HS, (Reported) Neomycin Flood/Bacitrac Zn/Poly 28.3 Gm Oint...g., TP BID PRN for SKIN ABRASIONS, ( Reported) Pantoprazole Sodium 40 Mg Tablet.dr, 40 MG PO DAILY, #90 Prescribed by: KLEBER GIVENS on 08/23/17 1324 Polyethylene Glycol 3350 17 Gm Powd.pack, 17 GM PO DAILY, (Reported) Tetrahydrozoline HCl 15 Ml Drops, 2 DROPS OU QID PRN for EYE REDNESS, (Reported) Triamcinolone Acet 15 Gm Cr, 15 GM TP TID PRN for RASH, (Reported) Past Jvrffvz-Itzjpl-Kxrhgp Hx Patient Social History Alcohol Use: Denies Use Recreational Drug Use: No Smoking Status: Never a Smoker 2nd Hand Smoke Exposure: No Recent Foreign Travel: No Contact w/Someone Who Travel: No Recent Infectious Disease Expo: No Recent Hopitalizations: No Physical Abuse: No Sexual Abuse: No Immunizations Up To Date Tetanus Booster (TDap): More than 5yrs Date of Pneumonia Vaccine: Aug 18, 2010 Date of Influenza Vaccine: Aug 28, 2017 Seasonal Allergies Seasonal Allergies: Yes Surgeries History of Surgeries: Yes (LEFT HIP FX ORIF) Surgeries: Hysterectomy, Orthopedic Respiratory History of Respiratory Disorde: No Currently Using CPAP: No Cardiovascular History of Cardiac Disorders: Yes (CHF) Cardiac Disorders: Hypertension Neurological History of Neurological Disord: Yes (SEVERE MR, NON-VERBAL) Neurological Disorders: Developmental Disorder Reproductive System Hx Reproductive Disorders: No (HYSTERECTOMY) Female Reproductive Disorders: 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 Genitourinary History of Genitourinary Disor: Yes Genitourinary Disorders: UTI-Chronic Gastrointestinal History of Gastrointestinal Di: Yes Gastrointestinal Disorders: Gastroesophageal Reflux, Chronic Constipation Musculoskeletal History of Musculoskeletal Dis: Yes (FX LEFT HIP, CONTRACTURE LEFT HAND) Musculoskeletal Disorders: Arthritis, Fractures, Contracture Endocrine History of Endocrine Disorders: Yes Endocrine Disorders: Diabetes, Non-Insulin dep HEENT History of HEENT Disorders: No Cancer History of Cancer: No Psychosocial History of Psychiatric Problem: Yes (SEVERE MR) Suicide Risk Score: 0 Integumentary History of Skin or Integumenta: No Skin/Integumentary Disorders: Recent Skin Changes Blood Transfusions History of Blood Disorders: No Adverse Reaction to a Blood Tr: No Family Medical History Significant Family History: No Pertinent Family Hx Family Medial History: Patient reports no known family medical history. Review of Systems Time Seen by Provider: 06:57 Exam Exam Vital Signs Date Time Temp Pulse Resp B/P (MAP) Pulse Ox O2 Delivery O2 Flow Rate FiO2 11/09/17 06:18 97 18 98 25 11/09/17 06:00 74 18 14/61 (45) 98 Mechanical Ventilator 25.00 11/09/17 05:00 95 18 107/42 (63) 98 Mechanical Ventilator 25.00 11/09/17 04:53 92 103/46 (65) 98 Mechanical Ventilator 25.00 11/09/17 04:50 88 92/35 (54) 98 Mechanical Ventilator 25.00 11/09/17 04:46 86 66/29 (41) 98 Mechanical Ventilator 25.00 11/09/17 04:45 89 71/33 (46) 98 Mechanical Ventilator 25.00 11/09/17 04:31 100 19 97 25 11/09/17 04:30 102 104/37 (59) 98 Mechanical Ventilator 25.00 11/09/17 04:07 97.7 Mechanical Ventilator 25.00 11/09/17 04:00 100 Mechanical Ventilator 25 11/09/17 04:00 109 20 86/50 (62) 98 Mechanical Ventilator 25.00 11/09/17 03:00 107 18 122/44 (70) 98 Mechanical Ventilator 25.00 11/09/17 02:25 103 17 97 25 11/09/17 02:00 97.6 98 18 93/46 (62) 97 Mechanical Ventilator 25.00 11/09/17 01:30 97.8 108 18 109/42 (64) 95 Mechanical Ventilator 25.00 11/09/17 01:00 107 11/09/17 01:00 97.0 106 18 105/36 (59) 98 Mechanical Ventilator 25.00 11/09/17 00:45 97.0 105 18 109/41 (63) 98 Mechanical Ventilator 25.00 11/09/17 00:30 96.8 109 20 107/49 (68) 97 Mechanical Ventilator 25.00 11/09/17 00:15 96.4 105 17 116/49 (71) 100 Mechanical Ventilator 25.00 11/09/17 00:00 100 Mechanical Ventilator 25 11/09/17 00:00 96.0 105 16 117/42 (67) 100 Mechanical Ventilator 25.00 11/08/17 23:45 96.0 112 16 116/42 (66) 98 Mechanical Ventilator 25.00 11/08/17 23:30 95.3 113 14 114/53 (73) 98 Mechanical Ventilator 25.00 11/08/17 23:23 Mechanical Ventilator 25 11/08/17 23:15 95.0 106 18 113/52 (72) 97 Mechanical Ventilator 25.00 11/08/17 23:13 94.6 98 14 113/47 (69) 100 Mechanical Ventilator 25.00 11/08/17 23:12 105 18 98 25 11/08/17 23:00 95.0 104 16 113/47 (69) 99 Mechanical Ventilator 50.00 11/08/17 22:35 98 11/08/17 22:15 95.0 96 15 105/70 (82) 100 Mechanical Ventilator 50.00 11/08/17 21:53 92 14 100 40 11/08/17 21:45 95.0 93 13 108/33 (58) 100 Mechanical Ventilator 50.00 11/08/17 21:40 94.9 85 26 100 Mechanical Ventilator 11/08/17 20:25 98 14 100 100 11/08/17 20:20 94.9 104 30 81/58 95 Mechanical Ventilator 11/08/17 20:18 Mechanical Ventilator 100 11/08/17 19:59 94.9 126 30 88/57 (67) 95 Room Air I & O 11/09/17 07:00 Intake Total 2550 ml Output Total 650 ml Balance 1900 ml General Appearance: Moderate Distress (sedated on vent) HEENT: Normal ENT Inspection, Pharynx Normal Respiratory: Crackles (mild bilateral bases), No Wheezing Cardiovascular: Regular Rate, Rhythm, No Murmur Capillary Refill: Less Than 3 Seconds Peripheral Pulses: 2+ Dorsalis Pedis (R), 2+ Left Dors-Pedis (L), 2+ Radial Pulses (R), 2+ Radial Pulses (L) Gastrointestinal: non tender, soft Skin: Normal Color, Warm/Dry Lymphatic: No Adenopathy Results Lab Laboratory Tests 11/08/17 19:59 11/09/17 04:15 Assessment/Plan Assessment/Plan -Severe sepsis with septic shock -Continue Vanco and Zosyn -Aggressive IVF -Levophed gtt - titrate for SBP for >90 -Acute respiratory failure -continue vent support for now Metabolic lactic acidosis -IVF -Obesity -UTI 255 With hx of severe MR and recently refusing medical care over last 6 mo comfort care should be strongly considered. Prognosis poor. -Consult hospice. Pt has a guardian. Clinical Quality Measures DVT/VTE Risk/Contraindication: Risk Factor Score Per Nursin RFS Level Per Nursing on Admit: 4+=Very High DANNA DELACRUZ DO Nov 09, 2017 06:41
[2017-11-09] MEDS ORDERED: SODIUM BICARB 8.4% 50 MEQ/50 ML (ABBOTT) SYR IV ONE (06:45)
[2017-11-09] MEDS: PANTOPRAZOLE 40 MG/10 ML (PROTONIX) VIAL IV SCH (08:07)
--- NOTE | 2017-11-09 09:45 | Diagnostic Imaging Report ---
INDICATION: Mechanical ventilation, ICU management. TECHNIQUE: Single view chest 4:42 AM. CORRELATION STUDY: 11/08/2017 FINDINGS: Endotracheal tube is present tip limited in visualization but appears to be below the clavicles above the irina. Gastric tube passes below the left hemidiaphragm. Heart size enlarged. There is presence of pulmonary vascular congestion may be slightly increased. Right IJ central line tip projects over the right atrium. Scattered pulmonary parenchymal densities over the lung base along with small effusions relatively stable. IMPRESSION: 1. Stable appearance about support lines and tubes. Vasculature does appear to be slightly increased from prior study. Dictated by: Dictated on workstation # [id number]
--- NOTE | 2017-11-09 10:15 | History & Physical-Hospitalist ---
HPI History of Present Illness: HPI/Chief Complaint CC: VDRF with septic shock HPI: This is a 72-year-old white female clinic patient of Dr. 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 She was found to have hypotension and findings consistent with urosepsis so septic shock treatment was initiated per protocol and patient was intubated although her mental retardation is so severe that the process is being completed under court order to withdraw aggressive care because of futility. Dr. Frenandez assessed the patient in depth and found the patient to have severe septic shock and was maintained on pressor therapy but is in the mist of signing the court order as I have done to withdraw care for end-of-life process. Source: RN/ Exam Limitations: clinical condition (intubated and MR) Date Seen 11/09/17 Time Seen by Provider: 08:15 Attending Physician Nayely Shah Rachel L MD Referring Physician Date of Admission Nov 08, 2017 at 21:21 Home Medications & Allergies Home Medications Reviewed patient Home Medication Reconciliation Form Allergies Allergies Coded Allergies ciprofloxacin (Verified Allergy, Intermediate, Lip swelling, 06/24/17) sulfamethoxazole (Verified Allergy, Intermediate, Lip swelling, 06/24/17) trimethoprim (Verified Allergy, Intermediate, Lip swelling, 06/24/17) metformin (Verified Adverse Reaction, Unknown, 06/24/17) DECREASED KIDNEY FUNCTION PER [facility] STAFF Past Xxzbtbw-Iqooex-Pzrimz Hx Patient Social History Marrital Status: single Employed/Student: unemployed Alcohol Use: Denies Use Recreational Drug Use: No Smoking Status: Never a Smoker 2nd Hand Smoke Exposure: No Physical Abuse Screen: No Sexual Abuse: No Recent Foreign Travel: No Contact w/other who traveled: No Recent Hopitalizations: No Recent Infectious Disease Expo: No Immunizations Up To Date Tetanus Booster (TDap): More than 5yrs Date of Pneumonia Vaccine: Aug 18, 2010 Date of Influenza Vaccine: Aug 28, 2017 Seasonal Allergies Seasonal Allergies: Yes Surgeries Yes (LEFT HIP FX ORIF) Hysterectomy, Orthopedic Respiratory No Currently Using CPAP: No Cardiovascular Yes (CHF) Hypertension Neurological Yes (SEVERE MR, NON-VERBAL) Developmental Disorder Reproductive System Hx Reproductive Disorders: No (HYSTERECTOMY) Female Reproductive Disorders: 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 Genitourinary Yes UTI-Chronic Gastrointestinal Yes Gastroesophageal Reflux, Chronic Constipation Musculoskeletal Yes (FX LEFT HIP, CONTRACTURE LEFT HAND) Arthritis, Fractures, Contracture Endocrine History of Endocrine Disorders: Yes Endocrine Disorders: Diabetes, Non-Insulin dep HEENT History of HEENT Disorders: No Cancer No Psychosocial History of Psychiatric Problem: Yes (SEVERE MR) Integumentary History of Skin or Integumenta: No Skin/Integumentary Disorders: Recent Skin Changes Blood Transfusions History of Blood Disorders: No Adverse Reaction to a Blood Tr: No Family Medical History Significant Family History: No Pertinent Family Hx Family Hx: Patient reports no known family medical history. Review of Systems ROS-Unable to Obtain: intubated patient Constitutional: see HPI Physical Exam Physical Exam Vital Signs Vital Sign - Last 12Hours 11/08/17 11/08/17 11/08/17 19:59 20:18 21:45 Temp 94.9 Pulse 126 Resp 30 B/P (MAP) 88/57 (67) Pulse Ox 95 O2 Delivery Room Air O2 Flow Rate 50.00 FiO2 100 Capillary Refill : Less Than 3 Seconds General Appearance: Chronically ill, Thin, Other (MR, intubated) Respiratory: Crackles, Decreased Breath Sounds, Other (on vent) Cardiovascular: Tachycardia Neurologic/Psychiatric: Other (sedated) Results Results/Procedures Lab Laboratory Tests 11/08/17 19:59 11/09/17 04:15 Assessment/Plan Admission Diagnosis Assessment: Septic shock due to urosepsis with multisystem organ failure now with vent- dependent respiratory failure in need of withdrawal of care due to futility Severe MR Severe low functioning baseline Assessment and Plan Plan: Futility documented by 2 physicians Withdrawal care End of life comfort care protocol Clinical Quality Measures DVT/VTE Risk/Contraindication: Risk Factor Score Per Nursin RFS Level Per Nursing on Admit: 4+=Very High NAYELY SHAH DO Nov 09, 2017 10:15
[2017-11-09] MEDS: ENOXAPARIN 40 MG/0.4 ML (LOVENOX) SYR SC SCH (11:14)
[2017-11-09] MEDS ORDERED: BENZ-36 PO (13:05)
[2017-11-09] MEDS ORDERED: PANT40TA2 PO (13:05)
[2017-11-09] MEDS ORDERED: [UNRECOGNIZED DRUG - CODE] TP (13:05)
[2017-11-10] VITALS (11 sets, daily range): BP systolic 93–115; BP diastolic 41–52
[2017-11-10] MEDS: VANCOMYCIN 1 GM/NS 250 ML IVPB IV SCH ×2 (00:07)
[2017-11-10] MEDS: NS IV 1000 ML 1,000 ML IV SCH ×2 (02:23→09:09)
[2017-11-10] MEDS: PIPERACILLIN/TAZOBACTAM 4.5 GM/NS100 ML IVPB IV SCH ×4 (03:32→11:16)
[2017-11-10 04:49] LABS: BASOPHILS % (AUTO) 1 % (0-10); EOSINOPHILS # (AUTO) 0.1 10^3/uL (0.0-0.3); EOSINOPHILS % (AUTO) 1 % (0-10); HEMATOCRIT 23 % (35-52); HEMOGLOBIN 7.6 G/DL (11.5-16.0); LYMPHOCYTES % (AUTO) 18 % (12-44); MEAN CORPUSCULAR HEMOGLOBIN 33 PG (25-34); MEAN CORPUSCULAR HGB CONC 34 G/DL (32-36); MEAN CORPUSCULAR VOLUME 99 FL (80-99); MEAN PLATELET VOLUME 9.8 FL (7.4-10.4); MONOCYTES # (AUTO) 0.8 X 10^3 (0.0-1.0); MONOCYTES % (AUTO) 13 % (0-12); NEUTROPHILS # (AUTO) 3.9 X 10^3 (1.8-7.8); NEUTROPHILS % (AUTO) 67 % (42-75); PLATELET COUNT 63 10^3/uL (130-400); RED BLOOD COUNT 2.29 10^6/uL (4.35-5.85); RED CELL DISTRIBUTION WIDTH 16.6 % (10.0-14.5); WHITE BLOOD COUNT 5.7 10^3/uL (4.3-11.0)
[2017-11-10 04:49] LABS: ABG BASE EXCESS -10.6 MMOL/L (-2.5-2.5); ABG OXYGEN SATURATION 97 % (94-100); ABG PCO2 21 MMHG (35-45); ABG PH 7.41 (7.37-7.43); ABG PO2 72 MMHG (79-93); ABG TCO2 13.8 MMOL/L (21.0-31.0)
[2017-11-10 04:54] LABS: ALLENS TEST YES-POS; INSPIRED O2 21%; PATIENT TEMP 98.6; VENTILATOR YES
[2017-11-10 05:20] LABS: CALCIUM 7.5 MG/DL (8.5-10.1); CREATININE SERUM 1.18 MG/DL (0.60-1.30); MAGNESIUM 1.9 MG/DL (1.8-2.4); PHOSPHORUS 2.4 MG/DL (2.3-4.7); POTASSIUM 4.3 MMOL/L (3.6-5.0)
[2017-11-10] MEDS: KCL 20 MEQ TAB (K-DUR) PO SCH (05:42)
[2017-11-10] MEDS: MAGNESIUM 1 GM/100 ML IVPB 100 ML IV SCH (05:42)
[2017-11-10] MEDS: POTASSIUM CL 10MEQ/50ML IVPB 50 ML IV SCH (05:42)
--- NOTE | 2017-11-10 06:21 | Pulmonary Progress Note ---
Subjective Time Seen by Provider: 06:23 Subjective/Events-last exam Pt is sill requiring Levophed. Exam Exam Vital Signs Date Time Temp Pulse Resp B/P (MAP) Pulse Ox O2 Delivery O2 Flow Rate FiO2 11/10/17 04:15 100 17 95 21 11/10/17 04:00 95 Mechanical Ventilator 25 11/10/17 04:00 98.8 98 18 93/41 (58) 95 Mechanical Ventilator 21.00 11/10/17 03:00 99.2 105 18 95/41 (59) 100 Mechanical Ventilator 21.00 11/10/17 02:00 99.5 106 26 112/49 (70) 96 Mechanical Ventilator 21.00 11/10/17 01:56 107 21 96 21 11/10/17 01:00 109 11/10/17 01:00 99.8 109 22 115/51 (72) 96 Mechanical Ventilator 21.00 11/10/17 00:40 110 22 96 21 11/10/17 00:00 100.4 109 22 113/52 (72) 95 Mechanical Ventilator 21.00 11/10/17 00:00 95 Mechanical Ventilator 25 11/09/17 23:00 100.4 110 22 106/43 (64) 95 Mechanical Ventilator 21.00 11/09/17 22:19 111 23 95 21 11/09/17 22:00 100.0 110 24 102/54 (70) 94 Mechanical Ventilator 21.00 11/09/17 21:00 99.8 109 23 115/58 (77) 94 Mechanical Ventilator 21.00 11/09/17 20:36 109 23 95 21 11/09/17 20:29 98.7 Mechanical Ventilator 25.00 11/09/17 20:00 95 Mechanical Ventilator 25 11/09/17 20:00 99.5 111 26 124/43 (70) 96 Mechanical Ventilator 21.00 11/09/17 19:00 99.2 93 12 115/51 (72) 97 Mechanical Ventilator 21.00 11/09/17 19:00 93 11/09/17 18:45 98 18 98 21 11/09/17 18:00 98.8 98 17 114/50 (71) 93 Mechanical Ventilator 25.00 11/09/17 17:00 98.6 98 19 110/51 (70) 97 Mechanical Ventilator 25.00 11/09/17 16:20 98 Mechanical Ventilator 25 11/09/17 16:09 96 17 100 21 11/09/17 16:00 98.5 94 17 120/51 (74) 99 Mechanical Ventilator 25.00 11/09/17 15:21 118/52 11/09/17 15:00 97.9 95 17 116/44 (68) 98 Mechanical Ventilator 25.00 11/09/17 14:00 97.6 97 17 112/45 (67) 98 Mechanical Ventilator 25.00 11/09/17 13:55 95 17 98 25 11/09/17 13:05 102 11/09/17 13:00 97.9 91 15 113/39 (63) 98 Mechanical Ventilator 25.00 11/09/17 12:09 98 Mechanical Ventilator 25 11/09/17 12:00 97.5 97 20 113/50 (71) 97 Mechanical Ventilator 25.00 11/09/17 11:25 93 18 100 25 11/09/17 11:00 97.1 92 18 101/55 (70) 96 Mechanical Ventilator 25.00 11/09/17 10:00 97.3 89 17 92/41 (58) 99 Mechanical Ventilator 25.00 11/09/17 09:32 90 16 98 25 11/09/17 09:00 97.3 90 13 101/40 (60) 99 Mechanical Ventilator 25.00 11/09/17 08:30 100 Mechanical Ventilator 25 11/09/17 08:00 97.1 91 16 99/51 (67) 98 Mechanical Ventilator 25.00 11/09/17 07:29 94 11/09/17 07:23 95 16 98 25 11/09/17 07:00 97.1 106 16 101/40 (60) 95 Mechanical Ventilator 25.00 11/09/17 06:18 97 18 98 25 I & O 11/10/17 07:00 Intake Total 1450 ml Output Total 785 ml Balance 665 ml General Appearance: Chronically ill, Thin, Other (MR, intubated) HEENT: Normal ENT Inspection, Pharynx Normal Respiratory: Crackles, Decreased Breath Sounds, Other (on vent) Cardiovascular: Tachycardia Capillary Refill: Less Than 3 Seconds Peripheral Pulses: 2+ Dorsalis Pedis (R), 2+ Left Dors-Pedis (L), 2+ Radial Pulses (R), 2+ Radial Pulses (L) Gastrointestinal: non tender, soft Neurologic/Psychiatric: Other (sedated) Skin: Normal Color, Warm/Dry Lymphatic: No Adenopathy Results Lab Laboratory Tests 11/08/17 19:59 11/09/17 04:15 11/10/17 04:35 Assessment/Plan Assessment/Plan -Severe sepsis with septic shock -Continue Vanco and Zosyn -Aggressive IVF -Levophed gtt - titrate for SBP for >90 -Acute respiratory failure -continue vent support for now Metabolic lactic acidosis -IVF -Repeat 2 units of HCO3 Anemia -Continue to monitor -Obesity -UTI 233 With hx of severe MR and recently refusing medical care over last 6 mo comfort care should be strongly considered. Prognosis poor. We are waiting for papers to make patient hospice/comfort care only. Clinical Quality Measures DVT/VTE Risk/Contraindication: Risk Factor Score Per Nursin RFS Level Per Nursing on Admit: 4+=Very High DANNA DELACRUZ DO Nov 10, 2017 06:21
[2017-11-10] MEDS ORDERED: LORazepam INJ 2 MG/ML (ATIVAN) VIAL IVP PRN ×2 (06:30→12:30)
[2017-11-10] MEDS ORDERED: morphine INJ 4 MG/ML 1 ML (VIAL/SYRINGE) IVP PRN (06:30)
[2017-11-10] MEDS ORDERED: SODIUM BICARB 8.4% 50 MEQ/50 ML (ABBOTT) SYR IV NR (06:55)
[2017-11-10] MEDS: PANTOPRAZOLE 40 MG/10 ML (PROTONIX) VIAL IV SCH (08:37)
--- NOTE | 2017-11-10 10:03 | Diagnostic Imaging Report ---
CHEST 1 VIEW, AP/PA ONLY Indication: Dyspnea with intubation Comparison: 11/09/2017 Findings: Support Devices: ET tube has tip less than 1 cm above the irina and near the right mainstem bronchus origin. Recommend approximately 2 cm of retraction. Enteric tube is in good position with tip and sidehole in the mid stomach. Stable right IJ central venous catheter. Chest: Low lung volumes. Probable trace left pleural effusion is unchanged. Central vascular congestion is also unchanged. No pneumothorax. Stable cardiomegaly. Impression: 1. ET tube has tip just above the irina and near the origin of the right mainstem bronchus. Recommend 2 cm of retraction. 2. Stable cardiomegaly with probable mild pulmonary edema. Dictated by: Dictated on workstation # [id number]
[2017-11-10] MEDS: ENOXAPARIN 40 MG/0.4 ML (LOVENOX) SYR SC SCH (11:17)
--- NOTE | 2017-11-10 12:27 | Discharge Summary-Hospitalist ---
Diagnosis/Chief Complaint Date of Admission Nov 08, 2017 at 21:21 Date of Discharge Admission Diagnosis Assessment: Septic shock due to urosepsis with multisystem organ failure now with vent- dependent respiratory failure in need of withdrawal of care due to futility Severe MR Severe low functioning baseline Discharge Diagnosis Assessment: Septic shock due to urosepsis with multisystem organ failure now with vent- dependent respiratory failure in need of withdrawal of care due to futility Severe MR Severe low functioning baseline Plan: Futility documented by 2 physicians Withdrawal care End of life comfort care protocol Discharge Summary Discharge Physical Examination Allergies: Coded Allergies: ciprofloxacin (Verified Allergy, Intermediate, Lip swelling, 06/24/17) sulfamethoxazole (Verified Allergy, Intermediate, Lip swelling, 06/24/17) trimethoprim (Verified Allergy, Intermediate, Lip swelling, 06/24/17) metformin (Verified Adverse Reaction, Unknown, 06/24/17) DECREASED KIDNEY FUNCTION PER [facility] STAFF Vitals & I&Os Vital Signs Date Time Temp Pulse Resp B/P (MAP) Pulse Ox O2 Delivery O2 Flow Rate FiO2 11/10/17 10:12 101 25 96 25 11/10/17 09:00 100/47 (64) Mechanical Ventilator 21.00 11/10/17 07:45 98.2 Hospital Course Hospital course: Patient had a standard hospital course for septic shock was intubated to maintain in the ICU on pressor therapy IV fluids empiric antibiotics and aggressive care. Futility was noted at the initial assessment in the ER but due to mental retardation court order had to be obtained by 2 physicians who agreed to futility and that was finally obtained on day of extubation in preparation for comfort care and end-of-life status. Patient will be kept comfortable in the last few moments of her life. Labs (last 24 hrs) Laboratory Tests 11/09/17 18:54: Glucometer 117H 11/10/17 00:42: Glucometer 105 11/10/17 04:35: White Blood Count 5.7, Red Blood Count 2.29L, Hemoglobin 7.6L, Hematocrit 23L, Mean Corpuscular Volume 99, Mean Corpuscular Hemoglobin 33, Mean Corpuscular Hemoglobin Concent 34, Red Cell Distribution Width 16.6H, Platelet Count 63L, Mean Platelet Volume 9.8, Neutrophils (%) (Auto) 67, Lymphocytes (%) (Auto) 18, Monocytes (%) (Auto) 13H, Eosinophils (%) (Auto) 1, Basophils (%) (Auto) 1, Neutrophils # (Auto) 3.9, Lymphocytes # (Auto) 1.0, Monocytes # (Auto) 0.8, Eosinophils # (Auto) 0.1, Basophils # (Auto) 0.0, Sodium Level 145, Potassium Level 4.3, Chloride Level 121H, Carbon Dioxide Level 13L, Anion Gap 11, Blood Urea Nitrogen 20H, Creatinine 1.18, Estimat Glomerular Filtration Rate 45, BUN/ Creatinine Ratio 17, Glucose Level 96, Calcium Level 7.5L, Phosphorus Level 2.4 , Magnesium Level 1.9 11/10/17 04:45: Blood Gas Puncture Site LEFT RADIAL, Blood Gas Patient Temperature 98.6, Arterial Blood pH 7.41, Arterial Blood Partial Pressure CO2 21L, Arterial Blood Partial Pressure O2 72L, Arterial Blood HCO3 13*L, Arterial Blood Total CO2 13.8L, Arterial Blood Oxygen Saturation 97, Arterial Blood Base Excess -10.6L, Brice Test YES-POS, Blood Gas Ventilator Setting YES, Blood Gas Inspired Oxygen 21% 11/10/17 05:55: Lactic Acid Level 0.73 11/10/17 11:19: Glucometer 93 Microbiology 11/08/17 MRSA Screen - Final, Complete MRSA not isolated 11/08/17 Urine Culture - Final, Complete Escherichia Coli Pending Labs Laboratory Tests 11/10/17 04:35: White Blood Count 5.7, Red Blood Count 2.29, Hemoglobin 7.6, Hematocrit 23, Mean Corpuscular Volume 99, Mean Corpuscular Hemoglobin 33, Mean Corpuscular Hemoglobin Concent 34, Red Cell Distribution Width 16.6, Platelet Count 63, Mean Platelet Volume 9.8, Neutrophils (%) (Auto) 67, Lymphocytes (%) (Auto) 18, Monocytes (%) (Auto) 13, Eosinophils (%) (Auto) 1, Basophils (%) (Auto) 1, Neutrophils # (Auto) 3.9, Lymphocytes # (Auto) 1.0, Monocytes # (Auto) 0.8, Eosinophils # (Auto) 0.1, Basophils # (Auto) 0.0, Sodium Level 145, Potassium Level 4.3, Chloride Level 121, Carbon Dioxide Level 13, Anion Gap 11, Blood Urea Nitrogen 20, Creatinine 1.18, Estimat Glomerular Filtration Rate 45, BUN/ Creatinine Ratio 17, Glucose Level 96, Calcium Level 7.5, Phosphorus Level 2.4, Magnesium Level 1.9 11/10/17 04:45: Blood Gas Puncture Site LEFT RADIAL, Blood Gas Patient Temperature 98.6, Arterial Blood pH 7.41, Arterial Blood Partial Pressure CO2 21, Arterial Blood Partial Pressure O2 72, Arterial Blood HCO3 13, Arterial Blood Total CO2 13.8, Arterial Blood Oxygen Saturation 97, Arterial Blood Base Excess -10.6, Brice Test YES-POS, Blood Gas Ventilator Setting YES, Blood Gas Inspired Oxygen 21% 11/10/17 05:55: Lactic Acid Level 0.73 11/10/17 11:19: Glucometer 93 Discharge Home Medications: Active Scripts Active Reported Benzonatate 100 Mg Capsule 100 Mg PO Q8H PRN Protonix (Pantoprazole Sodium) 40 Mg Tablet.dr 40 Mg PO DAILY Hydrocortisone Acetate 28.4 Gm Cream..g. TP TID PRN Lorazepam 0.5 Mg Tablet 0.5 Mg PO Q8H PRN Cyanocobalamin Injection (Cyanocobalamin) 1,000 Mcg/Ml Inj 1,000 Mcg IJ MONTHLY Ascorbic Acid 500 Mg Tablet 500 Mg PO DAILY Polyethylene Glycol 3350 17 Gm Powd.pack 17 Gm PO DAILY Triamcinolone Acetonide 0.1% Cream (Triamcinolone Acet) 15 Gm Cr 15 Gm TP TID PRN Acetaminophen 325 Mg Tablet 650 Mg PO Q4H PRN Ferrous Sulfate 325 Mg Tablet 325 Mg PO DAILY Lisinopril 10 Mg Tablet 10 Mg PO DAILY Imodium A-D (Loperamide HCl) 2 Mg Capsule PO UD PRN TAKE 2 TABS AFTER 1ST WATERY STOOL AND 1 TAB AFTER EACH WATERY STOOL THEREAFTER (NTE 4 DOSES IN 24 HOURS) Robitussin Cough-Chest Dm Liq (Guaifenesin/Dextromethorphan) 237 Ml Liquid 10 Ml PO Q4H PRN NOT TO EXCEED 6 DOSES IN 24 HOURS Milk of Magnesia (Magnesium Hydroxide) 400 Mg/5 Ml Oral.susp 30 Ml PO BID PRN Benadryl Allergy (Diphenhydramine HCl) 25 Mg Tablet 50 Mg PO Q6H PRN TAKES 2 (25MG) TABLETS Benadryl (Diphenhydramine HCl) 25 Mg Capsule 25 Mg PO Q6H PRN Cough Drops (Eucalyptus/Menthol) 1 Each Lozenge 1 Masha MM Q1HR PRN MAX 8 DROPS IN 24 HOURS Tums X-Str (Calcium Carbonate) 300 Mg Tab.chew 500 Mg PO UD PRN NOT TO EXCEED 10 TABS IN 24 HOURS Neosporin Ointment (Neomycin Flood/Bacitrac Zn/Poly) 28.3 Gm Oint...g. TP BID PRN Visine (Tetrahydrozoline HCl) 15 Ml Drops 2 Drops OU QID PRN Debrox (Carbamide Peroxide) 15 Ml Drops 10 Drops OT UD PRN 10 DROPS TO BOTH EARS 10 DAYS PRIOR TO NEXT VISIT Albuterol Sulfate 2.5 Mg/3 Ml Vial.neb 2.5 Mg NEB EVERY 4-6 HOURS PRN Montelukast Sodium 10 Mg Tablet 10 Mg PO HS Loratadine 10 Mg Tablet 10 Mg PO HS Instructions to patient/family Please see electronic discharge instructions given to patient. Clinical Quality Measures DVT/VTE Risk/Contraindication: Risk Factor Score Per Nursin RFS Level Per Nursing on Admit: 4+=Very High LADY RANDOLPH DO Nov 10, 2017 12:27
[2017-11-10] MEDS ORDERED: GLYCOPYRROLATE 0.2 MG/ML (ROBINUL) 2 ML VIAL IV PRN (12:30)
[2017-11-10] MEDS ORDERED: morphine INJ 4 MG/ML 1 ML (VIAL/SYRINGE) IV PRN (12:30)
[2017-11-10] MEDS ORDERED: RT-ALBUTEROL/IPRATROPIUM 3 ML (DUONEB) VIAL INH PRN (12:30)
[2017-11-10] MEDS ORDERED: ARTIFICIAL TEARS OINT (LACRI-LUBE) 3.5 GM TUBE OU PRN (12:30)
[2017-11-10] MEDS ORDERED: SALIVA STIMULANT MOUTH SPRAY (BIOTENE) 1.5 OZ MM PRN (12:30)
[2017-11-10] MEDS ORDERED: ONDANSETRON 4 MG/2 ML (SDV) Z0FRAN IVP PRN (12:30)
[2017-11-10] MEDS ORDERED: ACETAMINOPHEN 650 MG SUPP (TYLENOL) PR PRN (12:30)
[2017-11-10] MEDS ORDERED: ARTIFICAL TEARS 0.4 ML UNIT DOSE (REFRESH PLUS) OU PRN (12:30)
[2017-11-10] MEDS ORDERED: TROUGH ORDER-PHARMACY XX ONE (21:00)
--- NOTE | 2017-11-11 07:44 | Diagnostic Imaging Report ---
Portable semierect AP chest at 518 hours. INDICATION: Respiratory distress. FINDINGS: This exam is less than optimal as the patient is rotated and the right apex is obscured by the patient's chin. Allowing for these technical factors, there does not appear to have been any significant change since the prior exam of 11/10/2017. The heart remains enlarged and there is pulmonary congestion. There is also atelectasis/infiltrate and small amount of fluid in each lung base. The mediastinum is difficult to assess but does not seem to be widened. The osseous structures are intact. The central venous catheter on the right seen previously is again evident. The tip overlies the cavoatrial junction. The ET tube and NG line noted on the prior exam have been removed, however. IMPRESSION: 1. The overall appearance of the chest itself has not changed significantly on this suboptimal exam. A followup study would be recommended for continued evaluation. 2. The patient has been extubated and the NG line has been removed. Dictated by: Dictated on workstation # [id number]
[2017-11-11] MEDS ORDERED: ACET650S15 PR (12:42)
[2017-11-11] MEDS ORDERED: MORP100S3 PO (12:42)
[2017-11-11] MEDS ORDERED: LORA2ORA PO (12:42)
--- NOTE | 2017-11-11 12:43 | Discharge Summary-Hospitalist ---
Diagnosis/Chief Complaint Date of Admission Nov 08, 2017 at 21:21 Date of Discharge Discharge Date: Nov 11, 2017 Admission Diagnosis Assessment: Septic shock due to urosepsis with multisystem organ failure now with vent- dependent respiratory failure in need of withdrawal of care due to futility Severe MR Severe low functioning baseline Discharge Diagnosis Assessment: Septic shock due to urosepsis with multisystem organ failure now with vent- dependent respiratory failure in need of withdrawal of care due to futility Severe MR Severe low functioning baseline Plan: Futility documented by 2 physicians Withdrawal care End of life comfort care protocol Discharge Summary Discharge Physical Examination Allergies: Coded Allergies: ciprofloxacin (Verified Allergy, Intermediate, Lip swelling, 06/24/17) sulfamethoxazole (Verified Allergy, Intermediate, Lip swelling, 06/24/17) trimethoprim (Verified Allergy, Intermediate, Lip swelling, 06/24/17) metformin (Verified Adverse Reaction, Unknown, 06/24/17) DECREASED KIDNEY FUNCTION PER [facility] STAFF Vitals & I&Os Vital Signs Date Time Temp Pulse Resp B/P (MAP) Pulse Ox O2 Delivery O2 Flow Rate FiO2 11/11/17 12:45 Room Air 11/10/17 12:29 96.8 11/10/17 12:23 101 22 97 25 11/10/17 09:00 100/47 (64) 21.00 Hospital Course Hospital course: Patient was extubated and did not pass away as expected but appeared to be in no discomfort and she will be discharged today 11/11/17 on hospice with morphine and Ativan as needed to support this patient in the end- stage of her life. Labs (last 24 hrs) Microbiology 11/08/17 Blood Culture - Preliminary, Resulted Staph, Coag Neg (Cloth Handler) Streptococcus Viridans 11/08/17 MRSA Screen - Final, Complete MRSA not isolated 11/08/17 Urine Culture - Final, Complete Escherichia Coli Discharge Home Medications: Active Scripts Active Lorazepam Intensol (Lorazepam) 2 Mg/1 Ml Oral.conc 1 Mg PO Q3HR PRN Morphine Sulfate Concentrate 20mg/ml (Morphine Sulfate) 100 Mg/5 Ml Solution 5 Mg PO Q2H PRN Acetaminophen 650 Mg Supp.rect [address] Q4H PRN 30 Days Instructions to patient/family Please see electronic discharge instructions given to patient. Clinical Quality Measures DVT/VTE Risk/Contraindication: Risk Factor Score Per Nursin RFS Level Per Nursing on Admit: 4+=Very High RANDOLPH,LADY DO Nov 11, 2017 12:43
== END 2017-11-11 13:50 | disposition hospice, inpatient (51) | DRG 871 ==
LOC: EDUNIT# 19:56 → ER 19:58 → ICU 21:21
PROVIDERS: ADMIT Internal Medicine; ATTEND Internal Medicine
PROC: 5A1945Z Respiratory Ventilation, 24-96 Consecutive Hours (ICD-10-PCS; principal; 2017-11-08)
DX: A41.9 Sepsis, unspecified organism (principal); R65.21 Severe sepsis with septic shock; N30.00 Acute cystitis without hematuria; J96.91 Respiratory failure, unspecified with hypoxia; E87.2 Acidosis; F72 Severe intellectual disabilities; I10 Essential (primary) hypertension; Z51.5 Encounter for palliative care; Z66 Do not resuscitate; F03.90 Unspecified dementia, unspecified severity, without behavioral disturbance, psychotic disturbance, mood disturbance, and anxiety; E11.9 Type 2 diabetes mellitus without complications; K21.9 Gastro-esophageal reflux disease without esophagitis; M19.91 Primary osteoarthritis, unspecified site; R56.9 Unspecified convulsions; E66.9 Obesity, unspecified; Z86.79 Personal history of other diseases of the circulatory system; J30.2 Other seasonal allergic rhinitis; Z79.84 Long term (current) use of oral hypoglycemic drugs; Z68.26 Body mass index [BMI] 26.0-26.9, adult
CPT/HCPCS: 31500; 36415; 51702; 71010; 80048; 80053; 81000; 82805; 82962; 83605; 83735; 84100; 85025; 87040; 87077; 87081; 87088; 87186; 87804; 93005; 94002; 94003; 94799; 96361; 96374; 96375